=== PATIENT | male | born 1950 ===

== ENCOUNTER 2021-09-21 11:52 | Outpatient (REF) | payer MEDICARE, SELFPAY ==
[2021-09-21 12:04] LABS: MANUAL DIFF FLAG NO
[2021-09-21 12:29] LABS: Basophils Percent Auto 0.4 % (0-2); Eosinophils Absolute Auto 0.3 X10*3/uL (0.0-0.4); Eosinophils Percent Auto 3.2 % (0-4); Hematocrit 48.7 % (42.0-52.0); Imm Gran Abs Auto 0.05 X10*3/uL (0.00-0.03); Imm Gran Pct Auto 0.6 % (0.0-0.4); Lymphocytes Absolute Auto 2.5 X10*3/uL (1.2-4.9); Lymphocytes Percent Auto 30.1 % (20-40); Mean Corpuscular HGB Conc 32.9 g/dl (31.0-36.0); Mean Corpuscular Hemoglobin 28.6 pg (27.0-33.0); Mean Corpuscular Volume 87.1 fL (80.0-98.0); Mean Platelet Volume 8.6 fL (9.4-12.4); Monocytes Absolute Auto 0.9 X10*3/uL (0.1-1.2); Monocytes Percent Auto 10.6 % (2-11); Neutrophils Absolute Auto 4.7 x10*3/uL (2.0-8.3); Neutrophils Percent Auto 55.1 % (45-73); Platelet Count 310 X10*3/uL (160-400); Red Blood Count 5.59 X10*6/uL (4.60-5.80); Red Cell Distribution Width 14.9 % (11.0-16.0); White Blood Count 8.4 X10*3/uL (4.8-10.8)
[2021-09-21 12:40] LABS: Alanine Aminotransferase 26 U/L (0-40); Albumin Level 3.8 g/dL (3.5-5.0); Alkaline Phosphatase 56 U/L (39-117); Anion Gap 12 (12-20); Aspartate Amino Transferase 23 U/L (5-37); Bilirubin Total 0.3 mg/dL (0.0-1.0); Blood Urea Nitrogen 25 mg/dL (9-16); C Reactive Protein 0.69 mg/dL (< or = 0.50); Calcium 8.8 mg/dL (8.4-10.2); Carbon Dioxide 25 mmol/L (22-29); Chloride 110 mmol/L (96-108); Estimated Glomerular Filt Rate 44; Glucose Random 97 mg/dL (60-115); Potassium 4.8 mmol/L (3.3-5.1); Sodium 142 mmol/L (135-145); Total Protein 7.7 g/dL (6.5-8.0)
[2021-09-21 13:15] LABS: Erythrocyte Sedimentation Rate 27 MM/HR (0-15)
== END 2021-09-21 11:53 | disposition home or self-care (01) ==
LOC: HO.LAB 11:52
PROVIDERS: Visit Provider Internal Medicine Rheumatology
DX: M05.9 Rheumatoid arthritis with rheumatoid factor, unspecified (principal); N18.30 Chronic kidney disease, stage 3 unspecified; Z79.899 Other long term (current) drug therapy
CPT/HCPCS: 36415; 80053; 85025; 85652; 86140; 99212

== ENCOUNTER 2021-12-21 11:46 | Outpatient (REF) | payer MEDICARE, SELFPAY ==
[2021-12-21 14:18] LABS: MANUAL DIFF FLAG NO
[2021-12-21 14:33] LABS: Basophils Percent Auto 0.5 % (0-2); Eosinophils Absolute Auto 0.2 X10*3/uL (0.0-0.4); Eosinophils Percent Auto 2.5 % (0-4); Hematocrit 47.7 % (42.0-52.0); Hemoglobin 15.8 g/dl (14.0-18.0); Imm Gran Abs Auto 0.03 X10*3/uL (0.00-0.03); Imm Gran Pct Auto 0.4 % (0.0-0.4); Lymphocytes Absolute Auto 1.3 X10*3/uL (1.2-4.9); Lymphocytes Percent Auto 15.3 % (20-40); Mean Corpuscular HGB Conc 33.1 g/dl (31.0-36.0); Mean Corpuscular Hemoglobin 29.3 pg (27.0-33.0); Mean Corpuscular Volume 88.3 fL (80.0-98.0); Mean Platelet Volume 9.2 fL (9.4-12.4); Monocytes Absolute Auto 1.1 X10*3/uL (0.1-1.2); Neutrophils Absolute Auto 5.6 x10*3/uL (2.0-8.3); Neutrophils Percent Auto 68.3 % (45-73); Platelet Count 288 X10*3/uL (160-400); Red Cell Distribution Width 14.5 % (11.0-16.0); White Blood Count 8.2 X10*3/uL (4.8-10.8)
[2021-12-21 14:49] LABS: Alanine Aminotransferase 35 U/L (0-40); Aspartate Amino Transferase 28 U/L (5-37); C Reactive Protein 0.61 mg/dL (< or = 0.50); Estimated Glomerular Filt Rate 52
[2021-12-21 16:00] LABS: Erythrocyte Sedimentation Rate 18 MM/HR (0-15)
== END 2021-12-21 11:47 | disposition home or self-care (01) ==
LOC: HO.10HDL 11:46
PROVIDERS: Visit Provider Internal Medicine Rheumatology
DX: M05.9 Rheumatoid arthritis with rheumatoid factor, unspecified (principal); Z79.899 Other long term (current) drug therapy
CPT/HCPCS: 36415; 82565; 84450; 84460; 85025; 85652; 86140; 99212

== ENCOUNTER 2022-04-26 09:36 | Outpatient (REF) | payer MEDICARE, SELFPAY ==
[2022-04-26 10:30] LABS: MANUAL DIFF FLAG NO
[2022-04-26 10:45] LABS: Basophils Percent Auto 0.5 % (0-2); Eosinophils Absolute Auto 0.1 X10*3/uL (0.0-0.4); Eosinophils Percent Auto 1.8 % (0-4); Hematocrit 52.1 % (42.0-52.0); Hemoglobin 16.9 g/dl (14.0-18.0); Imm Gran Abs Auto 0.03 X10*3/uL (0.00-0.03); Imm Gran Pct Auto 0.4 % (0.0-0.4); Lymphocytes Absolute Auto 1.8 X10*3/uL (1.2-4.9); Lymphocytes Percent Auto 23.2 % (20-40); Mean Corpuscular HGB Conc 32.4 g/dl (31.0-36.0); Mean Corpuscular Hemoglobin 28.6 pg (27.0-33.0); Mean Corpuscular Volume 88.2 fL (80.0-98.0); Mean Platelet Volume 8.7 fL (9.4-12.4); Monocytes Percent Auto 12.5 % (2-11); Neutrophils Absolute Auto 4.7 x10*3/uL (2.0-8.3); Neutrophils Percent Auto 61.6 % (45-73); Platelet Count 299 X10*3/uL (160-400); Red Blood Count 5.91 X10*6/uL (4.60-5.80); Red Cell Distribution Width 13.4 % (11.0-16.0); White Blood Count 7.7 X10*3/uL (4.8-10.8)
[2022-04-26 11:53] LABS: Erythrocyte Sedimentation Rate 20 MM/HR (0-15)
[2022-04-26 12:06] LABS: Alanine Aminotransferase 40 U/L (0-40); Aspartate Amino Transferase 29 U/L (5-37); C Reactive Protein 0.84 mg/dL (< or = 0.50); Estimated Glomerular Filt Rate 52
== END 2022-04-26 09:37 | disposition home or self-care (01) ==
LOC: HO.10HDL 09:36
PROVIDERS: Visit Provider Internal Medicine Rheumatology
DX: M05.9 Rheumatoid arthritis with rheumatoid factor, unspecified (principal); Z79.899 Other long term (current) drug therapy
CPT/HCPCS: 36415; 82565; 84450; 84460; 85025; 85652; 86140

== ENCOUNTER → 2022-08-01 10:54 | Outpatient (BNVA) | payer MEDICARE, SELFPAY | PROVIDERS: PCP Internal Medicine; Visit Provider Internal Medicine Rheumatology | DX: M05.9 Rheumatoid arthritis with rheumatoid factor, unspecified (principal); I12.9 Hypertensive chronic kidney disease with stage 1 through stage 4 chronic kidney disease, or unspecified chronic kidney disease; N18.30 Chronic kidney disease, stage 3 unspecified; I69.320 Aphasia following cerebral infarction; Z79.631 Long term (current) use of antimetabolite agent; Z79.899 Other long term (current) drug therapy | CPT/HCPCS: 99212 ==

== ENCOUNTER 2022-08-01 12:06 | Outpatient (REF) | payer MEDICARE, SELFPAY ==
[2022-08-01 13:41] LABS: MANUAL DIFF FLAG NO
[2022-08-01 13:49] LABS: Basophils Percent Auto 0.4 % (0-2); Eosinophils Absolute Auto 0.2 X10*3/uL (0.0-0.4); Eosinophils Percent Auto 1.9 % (0-4); Hematocrit 50.4 % (42.0-52.0); Hemoglobin 16.2 g/dl (14.0-18.0); Imm Gran Abs Auto 0.04 X10*3/uL (0.00-0.03); Imm Gran Pct Auto 0.5 % (0.0-0.4); Lymphocytes Absolute Auto 1.6 X10*3/uL (1.2-4.9); Lymphocytes Percent Auto 19.8 % (20-40); Mean Corpuscular HGB Conc 32.1 g/dl (31.0-36.0); Mean Corpuscular Hemoglobin 28.2 pg (27.0-33.0); Mean Corpuscular Volume 87.8 fL (80.0-98.0); Mean Platelet Volume 8.6 fL (9.4-12.4); Monocytes Percent Auto 12.3 % (2-11); Neutrophils Absolute Auto 5.4 x10*3/uL (2.0-8.3); Neutrophils Percent Auto 65.1 % (45-73); Platelet Count 282 X10*3/uL (160-400); Red Blood Count 5.74 X10*6/uL (4.60-5.80); Red Cell Distribution Width 14.6 % (11.0-16.0); White Blood Count 8.3 X10*3/uL (4.8-10.8)
[2022-08-01 14:29] LABS: Erythrocyte Sedimentation Rate 14 MM/HR (0-15)
[2022-08-01 14:59] LABS: C Reactive Protein 0.74 mg/dL (< or = 0.50)
== END 2022-08-01 12:07 | disposition home or self-care (01) ==
LOC: HO.10HDL 12:06
PROVIDERS: Visit Provider Internal Medicine Rheumatology
DX: M05.9 Rheumatoid arthritis with rheumatoid factor, unspecified (principal); N18.30 Chronic kidney disease, stage 3 unspecified; Z79.899 Other long term (current) drug therapy
CPT/HCPCS: 36415; 85025; 85652; 86140

== ENCOUNTER 2022-11-27 07:57 | Outpatient (REF) | payer MEDICARE, SELFPAY ==
[2022-11-27 08:23] LABS: MANUAL DIFF FLAG NO
[2022-11-27 08:47] LABS: Basophils Percent Auto 0.6 % (0-2); Eosinophils Absolute Auto 0.2 X10*3/uL (0.0-0.4); Eosinophils Percent Auto 3.2 % (0-4); Hematocrit 50.7 % (42.0-52.0); Hemoglobin 16.6 g/dl (14.0-18.0); Imm Gran Abs Auto 0.03 X10*3/uL (0.00-0.03); Imm Gran Pct Auto 0.4 % (0.0-0.4); Lymphocytes Absolute Auto 1.4 X10*3/uL (1.2-4.9); Lymphocytes Percent Auto 19.5 % (20-40); Mean Corpuscular HGB Conc 32.7 g/dl (31.0-36.0); Mean Corpuscular Volume 88.5 fL (80.0-98.0); Mean Platelet Volume 8.5 fL (9.4-12.4); Monocytes Absolute Auto 0.6 X10*3/uL (0.1-1.2); Monocytes Percent Auto 8.4 % (2-11); Neutrophils Absolute Auto 4.7 x10*3/uL (2.0-8.3); Neutrophils Percent Auto 67.9 % (45-73); Platelet Count 262 X10*3/uL (160-400); Red Blood Count 5.73 X10*6/uL (4.60-5.80); Red Cell Distribution Width 13.8 % (11.0-16.0); White Blood Count 6.9 X10*3/uL (4.8-10.8)
[2022-11-27 09:14] LABS: Alanine Aminotransferase 54 U/L (0-40); Aspartate Amino Transferase 40 U/L (5-37); C Reactive Protein 0.61 mg/dL (< or = 0.50); Estimated Glomerular Filt Rate 52
[2022-11-27 09:22] LABS: Erythrocyte Sedimentation Rate 18 MM/HR (0-15)
== END 2022-11-27 07:58 | disposition home or self-care (01) ==
LOC: HO.LAB 07:57
PROVIDERS: PCP Internal Medicine; Visit Provider Internal Medicine Rheumatology
DX: M05.9 Rheumatoid arthritis with rheumatoid factor, unspecified (principal); Z79.899 Other long term (current) drug therapy
CPT/HCPCS: 36415; 82565; 84450; 84460; 85025; 85652; 86140

== ENCOUNTER 2022-11-29 09:36 | Outpatient (AMB) | payer MEDICARE, SELFPAY ==
--- NOTE | 2022-11-29 09:57 | MHC.OFFVIS ---
Intake Vital Signs 11/29/22 09:58 Height 6 ft Weight 206 lb 9.17 oz BMI 28.0 BP 128/60 Blood Pressure Location Lt brachial Position Sitting Pulse 69 Temp 97.5 F Temp Source Skin Pulse Oximetry (%) 89 L Oxygen Delivery Method Room Air Intake Visit Reasons: RA Intake Note: Here for RA follow up. c/o whole on left foot, healed Home Sales Service Professional Required: No Accompanied by: Self / Same As Patient Allergies No Known Allergies Allergy (Verified 11/29/22 09:57) HPI HPI Comments History of Present Illness Details Patient returns for evaluation of his rheumatoid arthritis. He remains on 15 mg weekly methotrexate, folic acid 1 mg daily, Xeljanz 5 mg daily, 1 Percocet nightly from his PCP. , and occasional ibuprofen 800 mg. In general he is pleased with the level of pain he has in the joints. He has been able to continue to go deep sea fishing with friends. He has been seeing a script supervisor about the callus and scarring at his left heel. This had developed into an infection years ago. Recently he says it was not infected but it was uncomfortable. He noted that there was some drainage of dark material consistent with an old hematoma. He is followed in Podiatry and apparently they have been debriding the area. It does not seem to limit him much in terms of his walking. Per his choice he has found an apartment in [place] so he does not have to live in [place] with his daughter. [facility] Medical History Aphasia as late effect of cerebrovascular accident CKD (chronic kidney disease) stage 3, GFR 30-59 ml/min GERD (gastroesophageal reflux disease) Hypertension Long-term use of immunosuppressant medication Seropositive rheumatoid arthritis Social History Household Members: Family Housing: House Are you a primary tree care foreman to a significant other at home: No Do you presently have visiting nurse or other home services: No Alcohol intake: never Patient Tobacco Use Status: Former Tobacco user Years Smoked: Quit 14 years ago e-Cigarette/Vaping Use: Never Used service: No Current occupational status: employed 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 Card Details: Negative chest pain, edema and syncope Resp Details: Negative for SOB, cough and wheezing GI Details: Negative indigestion/heartburn, nausea, abdominal pain, bowel changes, diarrhea, constipation and bloody stool. Skin/Breast Details: A callus on the left heel has been debrided but still is not smooth. Negative for itching, rash, hives, Raynaud's symptoms, sun sensitivity, and skin cancer Darius/Lymph Details: Negative for excessive bruising or bleeding. Physical Exam Vital Signs: Last Vital Signs Temp 97.5 F 11/29/22 09:58 Pulse 69 11/29/22 09:58 BP 128/60 11/29/22 09:58 Pulse Ox 89 L 11/29/22 09:58 Oxygen Delivery Method Room Air 11/29/22 09:58 BMI result Body Mass Index 28.0 APPEARANCE: Patient in no acute distress EYES no redness, pupils equal and reactive to light, eyelids normal EXTREMITIES: No edema, no calf tenderness, normal peripheral pulses. SKIN: At the left heel there is some dry skin that is been debrided. There is no surrounding redness or tenderness. This looks like a debrided callus. No drainage evident today. JOINT EXAM:.?? Cervical Spine:.? Full range of motion with slight discomfort.? No tenderness. Thoracic Spine:.? No scoliosis.? No tenderness on palpation. Lumbar Spine:.? Alignment normal.? Full range of motion without pain, no tenderness. Chest Wall:.? No tenderness, swelling, increased warmth or erythema. Hands:.? Right:? Mild to moderate swelling in the 1st 4 MCP joints with slight flexion deformity.? The 3rd MCP has slight tenderness and there is some ulnar deviation.? There is some thickening and minimal tenderness at the 3rd and 5th PIP.? He has multiple nodules over the MCP and PIP regions.? None of these are tender.? The skin is intact.? No sensory loss or thenar atrophy.? Left:? Mild swelling of the 1st 3 MCP joints but no tenderness.? There are a few nodules in this hand as well but none are tender.? No no thenar atrophy or sensory loss.? Wrists:.? pain-free range of motion to 45 degrees flexion or extension.? There nodules on the ulnar aspect of the volar side of the wrist bilaterally.? These are only slightly tender but not red or warm.? There is some slight thickening at the wrists but minimal tenderness and no increased warmth or erythema. Elbows:.? Right:? Normal pain-free range of motion with a large nodule over the ulnar region.? It is not tender or fluctuant.? There is no tenderness over the joint space.? Left: Pain-free range of motion with a few nodules within the olecranon bursa.? None of those are tender and there is no fluctuance or redness in the bursa.? No tenderness over the joint space. Shoulders:.? Right:? Slight discomfort with extremes of normal abduction or external rotation.? Minimal anterior tenderness without swelling or abductor weakness.? No adenopathy.? Left:? Full range of motion with no discomfort.? There is some minimal anterior tenderness but no adenopathy, weakness, swelling, increased warmth or erythema. Hips:.? Full range of motion without pain. Hip bursa:.? No tenderness. Knees:.?? Normal pain-free range of motion with mild patellofemoral crepitus.? No effusion, tenderness, swelling, increased warmth or erythema.? Ankles:.? Normal pain-free range of motion without tenderness, swelling, increased warmth or erythema. Feet:.? Left: Skin exam as noted above.in. ? The joints are not indurated, red, warm or tender.? No fluctuance or bruising.? There is some mild tenderness with bony enlargement at the 1st MTP joint.? Right: Mild 1st MTP bony enlargement without tenderness.? The 5th toe slides underneath the 4th toe.? Between the toes there is a slight area of skin redness and a corn is present but slightly tender but there are no breaks in the skin.? Elsewhere no tenderness, swelling, increased warmth or erythema. Results Reviewed Results Reviewed: Laboratory Tests 11/27/22 11/27/22 11/27/22 08:21 08:21 08:21 WBC 6.9 Hgb 16.6 ESR 18 H Creatinine 1.34 AST 40 H ALT 54 H C-Reactive Protein 0.61 H Assessment & Plan Assessment & Plan (1) Long-term use of immunosuppressant medication: Code(s): Z79.899 - Other director long term care (current) drug therapy (2) CKD (chronic kidney disease) stage 3, GFR 30-59 ml/min: Code(s): N18.30 - Chronic kidney disease, stage 3 unspecified (3) Elevated transaminase measurement: Code(s): R74.01 - Elevation of levels of liver transaminase levels (4) Foot callus: Comment: Left, source of infection in 2019 Code(s): L84 - Corns and callosities (5) Seropositive rheumatoid arthritis: Comment: ONSET 2007 Long-standing history of polyarticular joint pain and swelling with positive high titer rheumatoid factor and anti-CCP levels Methotrexate started 2015 Humira ([id number]) - Stopped due to infections Xeljanz 09/30 added - 2021 dosage reduced to just 5 mg daily due to some CKD. In Code(s): M05.9 - Rheumatoid arthritis with rheumatoid factor, unspecified Plan Patient has multiple deformities and multiple nodules from the RA but they are not accompanied by any significant tenderness. He seems to say he can function pretty well with his hands in spite of the deformities and limitation of motion. The medications seem to be tolerated okay although he has elevated transaminase now. He denies any current alcohol use history. We will cut his methotrexate dose back to 12.5 mg weekly. The renal function is limited but stable so he is on a reduced dose of both the methotrexate and the Xeljanz. We will check lab work again in January and March. A follow-up in March is recommended. He was warned that the callus could become infected again and he should inspected trung daily for any signs of infection. If that is present he will need to seek prompt medical care. Review his history, physical exam, and discussing issues of his LFTs and the callus took 34 minutes. Orders: Orders Alanine Aminotransferase Today M05.9 - Rheumatoid arthritis with rheumatoid factor, unspecified, Z79.899 - Other director long term care (current) drug therapy Aspartate Amino Transferase Today M05.9 - Rheumatoid arthritis with rheumatoid factor, unspecified, Z79.899 - Other half-way (current) drug therapy Creatinine Today M05.9 - Rheumatoid arthritis with rheumatoid factor, unspecified, Z79.899 - Other director long term care (current) drug therapy C Reactive Protein Today M05.9 - Rheumatoid arthritis with rheumatoid factor, unspecified Complete Blood Count Auto Diff Today M05.9 - Rheumatoid arthritis with rheumatoid factor, unspecified, Z79.899 - Other director long term care (current) drug therapy Erythrocyte Sedimentation Rate Today M05.9 - Rheumatoid arthritis with rheumatoid factor, unspecified Medications: Changed From methotrexate sodium 15 mg (6 x 2.5 mg) PO QWEEK 24 tabs 0RF M05.9 - Rheumatoid arthritis with rheumatoid factor, unspecified To methotrexate sodium 12.5 mg (5 x 2.5 mg) PO QWEEK 20 tabs 1RF M05.9 - Rheumatoid arthritis with rheumatoid factor, unspecified Coding Level of Care Code Est Pt Level 4 (35049) Diagnoses Long-term use of immunosuppressant medication Z79.899 CKD (chronic kidney disease) stage 3, GFR 30-59 ml/min N18.30 Elevated transaminase measurement R74.01 Foot callus L84 Seropositive rheumatoid arthritis M05.9
[2022-11-29 09:58] VITALS: BP 128/60; PULSE 69; TEMP 36.4; O2SAT 89; BMI 28.0
== END 2022-11-29 10:49 | disposition home or self-care (01) ==
PROVIDERS: PCP Internal Medicine; Visit Provider Internal Medicine Rheumatology
DX: M05.79 Rheumatoid arthritis with rheumatoid factor of multiple sites without organ or systems involvement (principal); L84 Corns and callosities; R74.01 Elevation of levels of liver transaminase levels; Z79.899 Other long term (current) drug therapy; N18.30 Chronic kidney disease, stage 3 unspecified
CPT/HCPCS: 99214

== ENCOUNTER → 2022-11-29 09:36 | Outpatient (BNVA) | payer MEDICARE, SELFPAY | PROVIDERS: PCP Internal Medicine; Visit Provider Internal Medicine Rheumatology | DX: M05.9 Rheumatoid arthritis with rheumatoid factor, unspecified (principal); N18.30 Chronic kidney disease, stage 3 unspecified; R74.01 Elevation of levels of liver transaminase levels; L84 Corns and callosities; Z79.899 Other long term (current) drug therapy | CPT/HCPCS: 99212 ==

== ENCOUNTER 2023-01-29 13:11 | Outpatient (REF) | payer MEDICARE, SELFPAY ==
[2023-01-29 13:36] LABS: MANUAL DIFF FLAG NO
[2023-01-29 13:52] LABS: Basophils Percent Auto 0.4 % (0-2); Eosinophils Absolute Auto 0.2 X10*3/uL (0.0-0.4); Eosinophils Percent Auto 2.9 % (0-4); Hematocrit 49.7 % (42.0-52.0); Hemoglobin 16.1 g/dl (14.0-18.0); Imm Gran Abs Auto 0.02 X10*3/uL (0.00-0.03); Imm Gran Pct Auto 0.3 % (0.0-0.4); Lymphocytes Percent Auto 26.3 % (20-40); Mean Corpuscular HGB Conc 32.4 g/dl (31.0-36.0); Mean Corpuscular Hemoglobin 28.9 pg (27.0-33.0); Mean Corpuscular Volume 89.2 fL (80.0-98.0); Mean Platelet Volume 8.7 fL (9.4-12.4); Monocytes Absolute Auto 0.9 X10*3/uL (0.1-1.2); Neutrophils Absolute Auto 4.4 x10*3/uL (2.0-8.3); Neutrophils Percent Auto 58.1 % (45-73); Platelet Count 243 X10*3/uL (160-400); Red Blood Count 5.57 X10*6/uL (4.60-5.80); Red Cell Distribution Width 14.3 % (11.0-16.0); White Blood Count 7.6 X10*3/uL (4.8-10.8)
[2023-01-29 14:55] LABS: Erythrocyte Sedimentation Rate 14 MM/HR (0-15)
[2023-01-29 15:16] LABS: Alanine Aminotransferase 39 U/L (0-40); Aspartate Amino Transferase 31 U/L (5-37); C Reactive Protein 1.07 mg/dL (< or = 0.50); Estimated Glomerular Filt Rate 52
== END 2023-01-29 13:12 | disposition home or self-care (01) ==
LOC: HO.LAB 13:11
PROVIDERS: PCP Internal Medicine; Visit Provider Internal Medicine Rheumatology
DX: M05.9 Rheumatoid arthritis with rheumatoid factor, unspecified (principal); Z79.899 Other long term (current) drug therapy
CPT/HCPCS: 36415; 82565; 84450; 84460; 85025; 85652; 86140

== ENCOUNTER 2023-03-23 10:02 | Outpatient (REF) | payer MEDICARE, SELFPAY ==
[2023-03-23 10:30] LABS: MANUAL DIFF FLAG NO
[2023-03-23 11:11] LABS: Basophils Percent Auto 0.5 % (0-2); Eosinophils Absolute Auto 0.1 X10*3/uL (0.0-0.4); Eosinophils Percent Auto 1.7 % (0-4); Hematocrit 48.8 % (42.0-52.0); Hemoglobin 15.9 g/dl (14.0-18.0); Imm Gran Abs Auto 0.02 X10*3/uL (0.00-0.03); Imm Gran Pct Auto 0.2 % (0.0-0.4); Lymphocytes Absolute Auto 1.2 X10*3/uL (1.2-4.9); Lymphocytes Percent Auto 14.6 % (20-40); Mean Corpuscular HGB Conc 32.6 g/dl (31.0-36.0); Mean Corpuscular Hemoglobin 29.3 pg (27.0-33.0); Mean Corpuscular Volume 89.9 fL (80.0-98.0); Mean Platelet Volume 8.7 fL (9.4-12.4); Monocytes Absolute Auto 1.1 X10*3/uL (0.1-1.2); Neutrophils Absolute Auto 5.8 x10*3/uL (2.0-8.3); Platelet Count 242 X10*3/uL (160-400); Red Blood Count 5.43 X10*6/uL (4.60-5.80); Red Cell Distribution Width 14.7 % (11.0-16.0); White Blood Count 8.3 X10*3/uL (4.8-10.8)
[2023-03-23 11:37] LABS: Alanine Aminotransferase 60 U/L (0-40); Aspartate Amino Transferase 54 U/L (5-37); C Reactive Protein 3.83 mg/dL (< or = 0.50); Estimated Glomerular Filt Rate 59
[2023-03-23 12:28] LABS: Erythrocyte Sedimentation Rate 28 MM/HR (0-15)
== END 2023-03-23 10:03 | disposition home or self-care (01) ==
LOC: HO.LAB 10:02
PROVIDERS: Visit Provider Internal Medicine Rheumatology
DX: M05.9 Rheumatoid arthritis with rheumatoid factor, unspecified (principal); Z79.899 Other long term (current) drug therapy
CPT/HCPCS: 36415; 82565; 84450; 84460; 85025; 85652; 86140

== ENCOUNTER 2023-04-02 09:54 | Outpatient (AMB) | payer MEDICARE, SELFPAY ==
[2023-04-02 10:10] VITALS: BP 140/74; PULSE 66; O2SAT 86; BMI 29.1
--- NOTE | 2023-04-02 10:10 | MHC.OFFVIS ---
Intake Vital Signs 04/02/23 10:10 Height 6 ft Weight 214 lb 15.211 oz BMI 29.1 BP 140/74 H Blood Pressure Location Lt brachial Position Sitting Pulse 66 Pulse Source Pulse Oximeter Pulse Oximetry (%) 86 L Oxygen Delivery Method Room Air Intake Visit Reasons: PMR Intake Note: Patient last seen 11/29/22, presents today for follow up and test results. Edge Stitcher Required: No Accompanied by: Self / Same As Patient Allergies No Known Allergies Allergy (Verified 04/02/23 10:14) HPI HPI Comments History of Present Illness Details The patient returns for evaluation of his rheumatoid arthritis. He remains on methotrexate 12.5 mg once a week, folic acid 1 mg daily, Xeljanz 5 mg daily, and occasionally he takes ibuprofen. In general he feels the joints are under fairly good control. He notes multiple areas of nodules. He had a difficult to heal eschar on the left heel. This he says is healing quite well this point. He and apparently the soccer commentator believe he might have had a rheumatoid nodule in that area. It was a source of a generalized cellulitic infection previously. He says there is no pain in that currently and he has not had any drainage for week from it. He is awaiting a shipment of the Xeljanz, he gets that through the [facility] and there has been some hold up on delivery so we will need to look into that. He lives on his own currently but he says he has some elder care services that are supposed to meet with them soon to help him out. He decided to move out of the home of his daughter. 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 He remains occasionally doing some recreational deep sea fishing with his friend. He was seen in urgent care with the complaint of productive cough. They apparently thought he had a sinusitis and put him on amoxicillin/clavulanic acid and prednisone. He says symptoms are improving. He has another 4 days of antibiotics. [facility] Medical History Aphasia as late effect of cerebrovascular accident CKD (chronic kidney disease) stage 3, GFR 30-59 ml/min GERD (gastroesophageal reflux disease) Hypertension Long-term use of immunosuppressant medication Seropositive rheumatoid arthritis Social History Household Members: Family Housing: House Are you a primary child care attendant to a significant other at home: No Do you presently have visiting nurse or other home services: No Alcohol intake: never Patient Tobacco Use Status: Former Tobacco user Years Smoked: Quit 14 years ago e-Cigarette/Vaping Use: Never Used service: No Current occupational status: employed 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 Card Details: Negative chest pain, edema and syncope Resp Details: Negative for SOB, cough and wheezing GI Details: Negative indigestion/heartburn, nausea, abdominal pain, bowel changes, diarrhea, constipation and bloody stool. Darius/Lymph Details: Negative for excessive bruising or bleeding. Physical Exam Vital Signs: Last Vital Signs Pulse 66 04/02/23 10:10 BP 140/74 H 04/02/23 10:10 Pulse Ox 86 L 04/02/23 10:10 Oxygen Delivery Method Room Air 04/02/23 10:10 BMI result Body Mass Index 29.1 APPEARANCE: Patient in no acute distress EYES no redness, pupils equal and reactive to light, eyelids normal EXTREMITIES: No edema, no calf tenderness, normal peripheral pulses. SKIN: At the left heel there is some dry skin with a healing eschar about 4 mm. There is no surrounding redness or tenderness. This looks like a debrided callus. No drainage evident today. JOINT EXAM:.?? Cervical Spine:.? Full range of motion with slight discomfort.? No tenderness. Thoracic Spine:.? No scoliosis.? No tenderness on palpation. Lumbar Spine:.? Alignment normal.? Full range of motion without pain, no tenderness. Chest Wall:.? No tenderness, swelling, increased warmth or erythema. Hands:.? Right:? Mild to moderate swelling in the 1st 4 MCP joints with slight flexion deformity.? The 3rd MCP has slight tenderness and there is some ulnar deviation.? There is some thickening and minimal tenderness at the 3rd and 5th PIP.? He has multiple nodules over the MCP and PIP regions.? None of these are tender.? The skin is intact.? No sensory loss or thenar atrophy.? Left:? Mild swelling of the 1st 3 MCP joints but no tenderness.? There are a few nodules in this hand as well but none are tender.? No no thenar atrophy or sensory loss.? Wrists:.? pain-free range of motion to 45 degrees flexion or extension.? There nodules on the ulnar aspect of the volar side of the wrists bilaterally.? These are only slightly tender but not red or warm.? There is some slight thickening at the wrists but minimal tenderness and no increased warmth or erythema. Elbows:.? Right:? Normal pain-free range of motion with a large nodule over the ulnar region.? It is not tender or fluctuant.? There is no tenderness over the joint space.? Left: Pain-free range of motion with a few nodules within the olecranon bursa.? None of those are tender and there is no fluctuance or redness in the bursa.? No tenderness over the joint space. Shoulders:.? Right:? Slight discomfort with extremes of normal abduction or external rotation.? Minimal anterior tenderness without swelling or abductor weakness.? No adenopathy.? Left:? Full range of motion with no discomfort.? There is some minimal anterior tenderness but no adenopathy, weakness, swelling, increased warmth or erythema. Hips:.? Full range of motion without pain. Hip bursa:.? No tenderness. Knees:.?? Normal pain-free range of motion with mild patellofemoral crepitus.? No effusion, tenderness, swelling, increased warmth or erythema.? Ankles:.? Normal pain-free range of motion without tenderness, swelling, increased warmth or erythema. Feet:.? Left: Skin exam as noted above. The joints are not indurated, red, warm or tender.? No fluctuance or bruising.? There is some mild tenderness with bony enlargement at the 1st MTP joint.? Right: Mild 1st MTP bony enlargement without tenderness.? The 5th toe slides underneath the 4th toe.? Between the toes there is a slight area of skin redness and a corn is present but slightly tender but there are no breaks in the skin.? Elsewhere no tenderness, swelling, increased warmth or erythema. ? Results Reviewed Results Reviewed: Laboratory Tests 03/23/23 10:28 WBC 8.3 Hgb 15.9 ESR 28 H C-Reactive Protein 3.83 H Laboratory Tests 01/29/23 03/23/23 13:34 10:28 AST 31 54 H ALT 39 60 H Assessment & Plan Assessment & Plan (1) Long-term use of immunosuppressant medication: Code(s): Z79.899 - Other senior living (current) drug therapy (2) Elevated transaminase measurement: Code(s): R74.01 - Elevation of levels of liver transaminase levels (3) Foot callus: Comment: Left, source of infection in 2019 Code(s): L84 - Corns and callosities (4) CKD (chronic kidney disease) stage 3, GFR 30-59 ml/min: Code(s): N18.30 - Chronic kidney disease, stage 3 unspecified (5) Seropositive rheumatoid arthritis: Comment: ONSET 2007 Long-standing history of polyarticular joint pain and swelling with positive high titer rheumatoid factor and anti-CCP levels Methotrexate started 2015 Humira ([id number]) - Stopped due to infections Xeljanz 09/30 - 2021 dosage reduced to just 5 mg daily due to some CKD. In Code(s): M05.9 - Rheumatoid arthritis with rheumatoid factor, unspecified Plan Longstanding seropositive rheumatoid arthritis with subsequent deformities and multiple nodules. He does seem to be functioning fairly well and he says he is reasonable comfortable with current regimen. He attributes mostly this to the Xeljanz. He is on a low dose because of the prior history of vascular disease as well as his CKD. The CKD number seems stable. He now has again slight elevation of transaminases. He denies any alcohol use. He is also on some antibiotics for either bronchitis or some sinusitis. Those symptoms seem to be improving. It is possible the transaminases are elevated because of that illness. We will have him recheck his chemistries next week and consider further reduction in the methotrexate dose if the LFTs remain elevated. We will fax in the form again for him to get the Xeljanz from the pharmaceutical company. The left heel wound seems to be almost all healed up. I told him to keep an eye on this and report to his primary doctor any signs of localized infection. We will aim follow-up for about 3 months. Orders: Orders Comprehensive Met. Panel Today Z79.899 - Other senior living (current) drug therapy Coding Level of Care Code Est Pt Level 4 (42103) Diagnoses Long-term use of immunosuppressant medication Z79.899 Elevated transaminase measurement R74.01 Foot callus L84 CKD (chronic kidney disease) stage 3, GFR 30-59 ml/min N18.30 Seropositive rheumatoid arthritis M05.9
== END 2023-04-02 10:40 | disposition home or self-care (01) ==
PROVIDERS: PCP Internal Medicine; Visit Provider Internal Medicine Rheumatology
DX: M05.79 Rheumatoid arthritis with rheumatoid factor of multiple sites without organ or systems involvement (principal); Z79.899 Other long term (current) drug therapy; R74.01 Elevation of levels of liver transaminase levels; L84 Corns and callosities; N18.30 Chronic kidney disease, stage 3 unspecified
CPT/HCPCS: 99214

== ENCOUNTER → 2023-04-02 09:54 | Outpatient (BNVA) | payer MEDICARE, SELFPAY | PROVIDERS: PCP Internal Medicine; Visit Provider Internal Medicine Rheumatology | DX: M05.9 Rheumatoid arthritis with rheumatoid factor, unspecified (principal); N18.30 Chronic kidney disease, stage 3 unspecified; L84 Corns and callosities; R74.01 Elevation of levels of liver transaminase levels; Z79.899 Other long term (current) drug therapy | CPT/HCPCS: 99212 ==

== ENCOUNTER 2023-04-10 10:29 | Outpatient (REF) | payer MEDICARE, SELFPAY ==
[2023-04-10 15:08] LABS: Alanine Aminotransferase 56 U/L (0-40); Albumin Level 3.6 g/dL (3.5-5.0); Alkaline Phosphatase 45 U/L (39-117); Anion Gap 10 (12-20); Aspartate Amino Transferase 33 U/L (5-37); Bilirubin Total 0.3 mg/dL (0.0-1.0); Blood Urea Nitrogen 30 mg/dL (9-16); Calcium 9.2 mg/dL (8.4-10.2); Carbon Dioxide 28 mmol/L (22-29); Chloride 108 mmol/L (96-108); Estimated Glomerular Filt Rate 53; Glucose Random 86 mg/dL (60-115); Potassium 4.5 mmol/L (3.3-5.1); Sodium 141 mmol/L (135-145); Total Protein 7.6 g/dL (6.5-8.0)
== END 2023-04-10 10:30 | disposition home or self-care (01) ==
LOC: HO.10HDL 10:29
PROVIDERS: Visit Provider Internal Medicine Rheumatology
DX: Z79.899 Other long term (current) drug therapy (principal)
CPT/HCPCS: 36415; 80053

== ENCOUNTER 2023-07-12 10:03 | Outpatient (AMB) | payer MEDICARE, SELFPAY ==
[2023-07-12 10:10] VITALS: BP 138/70; PULSE 88; TEMP 36.4; O2SAT 98; BMI 29.2
--- NOTE | 2023-07-12 10:10 | A.OFFVIS_ITS ---
Intake Vital Signs 07/12/23 10:10 Height 6 ft Weight 215 lb 6.266 oz BMI 29.2 BP 138/70 Blood Pressure Location Rt brachial Position Sitting Pulse 88 Pulse Source Pulse Oximeter Temp 97.5 F Temp Source Skin Pulse Oximetry (%) 98 Oxygen Delivery Method Room Air Intake Visit Reasons: RA/CONFIRMED Intake Note: Patient last seen 04/02/[address] Benjamin, presents today for follow up and test results. Traveling Phlebotomist Required: No Accompanied by: Self / Same As Patient Allergies No Known Allergies Allergy (Verified 07/12/23 10:11) HPI HPI Comments History of Present Illness Details Mr. Tate 73yoM patient returns for follow-up of his rheumatoid arthritis. He remains on methotrexate 12.5 mg once a week, folic acid 1 mg daily, Xeljanz 5 mg daily, and occasionally he takes ibuprofen. In general he feels the joints are under fairly good control. He notes multiple areas of nodules and notes more are coming out primarily on his arms and hands. He had a difficult to heal eschar on the left heel but that is now resolved. 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 He remains occasionally doing some recreational deep sea fishing with his friend. [facility] Medical History (Updated 07/12/23 @ 12:50 by TETO Mora) Rheumatoid nodule of elbow Long-term use of immunosuppressant medication Hypertension GERD (gastroesophageal reflux disease) CKD (chronic kidney disease) stage 3, GFR 30-59 ml/min Aphasia as late effect of cerebrovascular accident Seropositive rheumatoid arthritis Social History Household Members: Family Housing: House Are you a primary director critical care to a significant other at home: No Do you presently have visiting nurse or other home services: No Alcohol intake: never Patient Tobacco Use Status: Former Tobacco user Years Smoked: Quit 14 years ago e-Cigarette/Vaping Use: Never Used service: No Current occupational status: employed 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 Physical Exam Vital Signs: Last Vital Signs Temp 97.5 F 07/12/23 10:10 Pulse 88 07/12/23 10:10 BP 138/70 07/12/23 10:10 Pulse Ox 98 07/12/23 10:10 Oxygen Delivery Method Room Air 07/12/23 10:10 BMI result Body Mass Index 29.2 Assessment & Plan Assessment & Plan (1) Long-term use of immunosuppressant medication: Code(s): Z79.899 - Other parts counterman (current) drug therapy (2) Elevated transaminase measurement: Code(s): R74.01 - Elevation of levels of liver transaminase levels (3) CKD (chronic kidney disease) stage 3, GFR 30-59 ml/min: Code(s): N18.30 - Chronic kidney disease, stage 3 unspecified Qualifiers: Chronic kidney disease stage 3 subtype: stage 3b (GFR 30-44) Qualified Code(s): N18.32 - Chronic kidney disease, stage 3b (4) Seropositive rheumatoid arthritis: Comment: ONSET 2007 Long-standing history of polyarticular joint pain and swelling with positive high titer rheumatoid factor and anti-CCP levels Methotrexate started 2015 Humira ([id number]) - Stopped due to infections Xeljanz 09/30 - 2021 dosage reduced to just 5 mg daily due to some CKD. In Code(s): M05.9 - Rheumatoid arthritis with rheumatoid factor, unspecified (5) Rheumatoid nodule of elbow: Code(s): M06.329 - Rheumatoid nodule, unspecified elbow Qualifiers: Laterality: unspecified laterality Qualified Code(s): M06.329 - Rheumatoid nodule, unspecified elbow Plan Mr. Tate has longstanding seropositive rheumatoid arthritis with subsequent deformities and multiple nodules. He does seem to be functioning fairly well and he says he is reasonable comfortable with current regimen. He attributes mostly this to the Xeljanz. He is on a low dose because of the prior history of vascular disease (CVA 2021) as well as his CKD. The CKD number seems stable. He continues with slight elevation of transaminases though the AST is normalized after the reduction of MTX. He denies any alcohol use. I discussed with patient possible stopping MTX which may be contributory to the RA nodules but he refuses. His disease is stable and he does not want to alter at this point. Additionally, we discuss his history of CVA and Xeljanz and he wants to continue. We will aim follow-up for about 4 months. Orders: Orders Erythrocyte Sedimentation Rate Today M05.9 - Rheumatoid arthritis with rheumatoid factor, unspecified, R74.01 - Elevation of levels of liver transaminase levels, Z79.899 - Other parts counterman (current) drug therapy Complete Blood Count Auto Diff Today M05.9 - Rheumatoid arthritis with rheumatoid factor, unspecified, R74.01 - Elevation of levels of liver transaminase levels, Z79.899 - Other parts counterman (current) drug therapy Comprehensive Met. Panel Today M05.9 - Rheumatoid arthritis with rheumatoid factor, unspecified, R74.01 - Elevation of levels of liver transaminase levels, Z79.899 - Other residential (current) drug therapy C Reactive Protein Today M05.9 - Rheumatoid arthritis with rheumatoid factor, unspecified, R74.01 - Elevation of levels of liver transaminase levels, Z79.899 - Other residential (current) drug therapy Coding Level of Care Code Est Pt Level 4 (81115) Diagnoses Long-term use of immunosuppressant medication Z79.899 Elevated transaminase measurement R74.01 Stage 3b chronic kidney disease N18.32 Chronic kidney disease stage 3 subtype: stage 3b (GFR 30-44) Seropositive rheumatoid arthritis M05.9 Rheumatoid nodule of elbow, unspecified laterality M06.329 Laterality: unspecified laterality
== END 2023-07-12 10:58 | disposition home or self-care (01) ==
PROVIDERS: PCP Internal Medicine; Visit Provider Nurse Practitioner Family
DX: M05.79 Rheumatoid arthritis with rheumatoid factor of multiple sites without organ or systems involvement (principal); Z79.899 Other long term (current) drug therapy; R74.01 Elevation of levels of liver transaminase levels; N18.32 Chronic kidney disease, stage 3b; M06.329 Rheumatoid nodule, unspecified elbow
CPT/HCPCS: 99214

== ENCOUNTER → 2023-07-12 10:03 | Outpatient (BNVA) | payer MEDICARE, SELFPAY | PROVIDERS: PCP Internal Medicine; Visit Provider Nurse Practitioner Family | DX: M05.9 Rheumatoid arthritis with rheumatoid factor, unspecified (principal); R74.01 Elevation of levels of liver transaminase levels; N18.32 Chronic kidney disease, stage 3b; M06.329 Rheumatoid nodule, unspecified elbow; Z79.899 Other long term (current) drug therapy | CPT/HCPCS: 99212 ==

== ENCOUNTER 2023-07-26 10:56 | Outpatient (REF) | payer MEDICARE, SELFPAY ==
[2023-07-26 13:02] LABS: MANUAL DIFF FLAG NO
[2023-07-26 13:06] LABS: Basophils Absolute Auto 0.1 X10*3/uL (0.0-0.2); Basophils Percent Auto 0.6 % (0-2); Eosinophils Absolute Auto 0.3 X10*3/uL (0.0-0.4); Eosinophils Percent Auto 2.8 % (0-4); Hematocrit 51.3 % (42.0-52.0); Hemoglobin 17.3 g/dl (14.0-18.0); Imm Gran Abs Auto 0.03 X10*3/uL (0.00-0.03); Imm Gran Pct Auto 0.3 % (0.0-0.4); Lymphocytes Absolute Auto 1.7 X10*3/uL (1.2-4.9); Lymphocytes Percent Auto 19.1 % (20-40); Mean Corpuscular HGB Conc 33.7 g/dl (31.0-36.0); Mean Corpuscular Hemoglobin 29.4 pg (27.0-33.0); Mean Corpuscular Volume 87.2 fL (80.0-98.0); Mean Platelet Volume 8.6 fL (9.4-12.4); Monocytes Absolute Auto 1.4 X10*3/uL (0.1-1.2); Monocytes Percent Auto 15.3 % (2-11); Neutrophils Absolute Auto 5.5 x10*3/uL (2.0-8.3); Neutrophils Percent Auto 61.9 % (45-73); Platelet Count 238 X10*3/uL (160-400); Red Blood Count 5.88 X10*6/uL (4.60-5.80); Red Cell Distribution Width 14.6 % (11.0-16.0); White Blood Count 8.9 X10*3/uL (4.8-10.8)
[2023-07-26 13:46] LABS: Alanine Aminotransferase 41 U/L (0-40); Albumin Level 3.4 g/dL (3.5-5.0); Alkaline Phosphatase 49 U/L (39-117); Anion Gap 10 (12-20); Aspartate Amino Transferase 30 U/L (5-37); Bilirubin Total 0.3 mg/dL (0.0-1.0); Blood Urea Nitrogen 25 mg/dL (9-16); Calcium 8.8 mg/dL (8.4-10.2); Carbon Dioxide 25 mmol/L (22-29); Chloride 111 mmol/L (96-108); Estimated Glomerular Filt Rate > 60; Glucose Random 83 mg/dL (60-115); Sodium 142 mmol/L (135-145); Total Protein 7.4 g/dL (6.5-8.0)
[2023-07-26 13:51] LABS: Erythrocyte Sedimentation Rate 11 MM/HR (0-15)
== END 2023-07-26 10:57 | disposition home or self-care (01) ==
LOC: HO.10HDL 10:56
PROVIDERS: Visit Provider Nurse Practitioner Family
DX: R74.01 Elevation of levels of liver transaminase levels (principal); M05.9 Rheumatoid arthritis with rheumatoid factor, unspecified; Z79.899 Other long term (current) drug therapy
CPT/HCPCS: 36415; 80053; 85025; 85652; 86140

== ENCOUNTER 2023-10-01 11:02 | Outpatient (AMB) | payer MEDICARE, SELFPAY ==
[2023-10-01 11:45] VITALS: BMI 29.3
--- NOTE | 2023-10-01 11:45 | A.OFFVIS_ITS ---
VS Expanded 10/01/23 11:45 10/10/23 08:40 Height 6 ft 6 ft Weight 215 lb 13.321 oz 216 lb BMI 29.3 29.3 Intake Visit Reasons: DM/CONFIRMED Allergies No Known Allergies Allergy (Verified 07/12/23 10:11) Nutrition Presentation Details: Patient presents for initial medical nutrition therapy for new onset type 2 diabetes. Patient was reserved for heard by primary care physician Matthew Mike From [facility] Monitoring Most Recent Diabetes Results: Creatinine 1.12 mg/dL (0.5-1.4) 07/26/23 Blood Urea Nitrogen 25 mg/dL (9-16) H 07/26/23 Sodium 142 mmol/L (135-145) 07/26/23 Potassium 4.0 mmol/L (3.3-5.1) 07/26/23 Chloride 111 mmol/L (96-108) H 07/26/23 Carbon Dioxide 25 mmol/L (22-29) 07/26/23 Calcium 8.8 mg/dL (8.4-10.2) 07/26/23 AST 30 U/L (5-37) 07/26/23 ALT 41 U/L (0-40) H 07/26/23 Total Protein 7.4 g/dL (6.5-8.0) 07/26/23 Albumin 3.4 g/dL (3.5-5.0) L 07/26/23 RFJ-Dnwacda-Mr.Jeor Equation Height: 6 ft Weight: 216 lb Resting Metabolic Rate: 1762.70 Calculated Activity Level: Sedentary Calories Needed to Maintain Weight: 2115.24 Diagnosis Nutrition problem #1: food nutri know defi As related to (etiology) #1: diagnosis As evidenced by (sign/symptom) #1: knowledge deficit of diet Monitoring/Goals Nutrition problem monitoring: level of knowledge/skill Outcome progress: verbalized understanding Learning/Education Readiness to learn: good [facility] Medical History (Updated 10/10/23 @ 08:35 by Jacklyn Dunn, RD, LDN) Rheumatoid nodule of elbow Long-term use of immunosuppressant medication Hypertension GERD (gastroesophageal reflux disease) CKD (chronic kidney disease) stage 3, GFR 30-59 ml/min Aphasia as late effect of cerebrovascular accident Seropositive rheumatoid arthritis Social History (Reviewed 07/12/23 @ 10:11 by RAINER Cao Household Members: Family Housing: House Are you a primary director of patient care to a significant other at home: No Do you presently have visiting nurse or other home services: No Alcohol intake: never Patient Tobacco Use Status: Former Tobacco user Years Smoked: Quit 14 years ago e-Cigarette/Vaping Use: Never Used service: No Current occupational status: employed 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 Assessment & Plan Assessment & Plan (1) New onset type 2 diabetes mellitus: Code(s): E11.9 - Type 2 diabetes mellitus without complications Category: Medical Plan: Wt: 98 Kg ( 09/2023 ) Est kcal needs as per MSJ: 2100 (40% carb, 30% protein/fat) Est fluid needs as per 25-30 ml/d: 2500 Est prot per day as per 1 g/kg bw: 98 G Recommend fiber intake : 8-10 g per day and gradually increase to 25-28 g per day for women and 35-38 g for men or as tolerated Recommend sodium intake per day : less than 2000 mg Educated patient on: ( R = reviewed V = verbalizes understanding N/R = needs review N/A = not applicable * Food sources of carbohydrate, adequate serving sizes and its role in various health conditions: R * Differences between complex carbohydrates a simple carbohydrates, role of fiber in diet: R V N/R * Lean protein sources of foods: R V NR * Differences between types of fats and role in diet (mono on saturated fat fatty acids, saturated fatty acids, trans fats): R V N/R * Food sources of sodium in salt and healthy modifications for heart health in kidney health: R V R/V * Vitamins and minerals: R V N/R * Healthy plate method concept: R * Physical activity: Benefits a precaution: R V N/R * Hypoglycemia protocol (rule of 15): R V N/R * Dietary prevention of Hyperglycemia: R * Relationship of food to blood glucose level: R Patient Instructions: Follow healthy plate method, reducing total carbs to 60 -75 g at meals Have water or milk with meals instead of sugary beverages Work on reducing on pastries Coding Level of Care Code Nutr Indiv Intake (73927) Diagnoses New onset type 2 diabetes mellitus E11.9 Time Spent (min) 30
[2023-10-10 08:40] VITALS: BMI 29.3
== END 2023-10-01 12:17 | disposition home or self-care (01) ==
PROVIDERS: PCP Internal Medicine; Visit Provider Dietitian, Registered
DX: E11.9 Type 2 diabetes mellitus without complications (principal)

== ENCOUNTER → 2023-10-01 11:02 | Outpatient (BNVA) | payer MEDICARE, SELFPAY | PROVIDERS: PCP Internal Medicine; Visit Provider Dietitian, Registered | DX: E11.9 Type 2 diabetes mellitus without complications (principal); Z71.3 Dietary counseling and surveillance | CPT/HCPCS: 97802 ==

== ENCOUNTER 2023-10-30 07:57 | Outpatient (AMB) | payer MEDICARE, MEDICAID, SELFPAY ==
--- NOTE | 2023-10-30 07:58 | A.OFFVIS_ITS ---
Vital Signs 10/30/23 08:05 Height 6 ft Weight 212 lb 15.465 oz BMI 28.9 BP 134/70 Blood Pressure Location Lt brachial Position Sitting Pulse 70 Pulse Oximetry (%) 90 L Oxygen Delivery Method Room Air Intake Visit Reasons: SeroPos RA with Nodules/cm Intake Note: Patient presents for SeroPos RA with Nodules. Allergies No Known Allergies Allergy (Verified 10/30/23 08:03) Medication List - Last Reconciled 10/30/23 by Danisha Lubin MD aspirin (Adult Low Dose Aspirin) 81 mg PO DAILY clopidogrel (Plavix) 75 mg PO DAILY fenofibrate micronized 134 mg PO DAILY folic acid 1 mg PO DAILY ibuprofen 800 mg PO DAILY PRN ketoconazole 2% topical lisinopril 5 mg PO DAILY methotrexate sodium 12.5 mg (5 x 2.5 mg) PO QWEEK omeprazole 20 mg PO DAILY oxycodone-acetaminophen 5-325 mg 1 tab PO DAILY PRN Xeljanz (tofacitinib) 5 mg PO DAILY NS HPI Comments Details: This is a 73-year-old male with seropositive nodular deforming RA who presents for follow-up. States that he is doing quite well overall. Compliant with his methotrexate and Xeljanz. Denies any cough, shortness of breath. [facility] Medical History Rheumatoid nodule of elbow Long-term use of immunosuppressant medication Hypertension GERD (gastroesophageal reflux disease) CKD (chronic kidney disease) stage 3, GFR 30-59 ml/min Aphasia as late effect of cerebrovascular accident Seropositive rheumatoid arthritis Social History Household Members: Family Housing: House Are you a primary physician primary care sports medicine to a significant other at home: No Do you presently have visiting nurse or other home services: No Alcohol intake: never Patient Tobacco Use Status: Former Tobacco user Years Smoked: Quit 14 years ago e-Cigarette/Vaping Use: Never Used service: No Current occupational status: employed 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 Review of Systems Card Denies dyspnea Resp Denies cough and Denies dyspnea Musc Reports deformity, Denies arthralgias, Denies joint swelling and Reports stiffness Physical Exam Vital Signs: Last Vital Signs Pulse 70 10/30/23 08:05 BP 134/70 10/30/23 08:05 Pulse Ox 90 L 10/30/23 08:05 Oxygen Delivery Method Room Air 10/30/23 08:05 BMI result Body Mass Index 28.9 Const General: cooperative, healthy appearing and comfortable Nutritional Appearance: overweight Orientation/consciousness: patient oriented x3 Limitations: no limitations HEENT Head: Yes normocephalic and Yes atraumatic Mouth: moist mucous membranes Resp Effort & Inspection: normal respiratory effort and able to speak in complete sentences Auscultation: clear to auscultation bilaterally Cardio Rate: regular rate Skin General skin exam: no rashes or lesions noted Neuro General: patient oriented x3 Extrem Other: Significant deforming nodular RA on top of bilateral hand osteoarthritis but there is no active synovitis Large rheumatoid nodules distal to both elbows Right wrist ulnar deviation at the MCPs Normal range of motion of hands, wrists, elbows and shoulders Excellent bilateral hand supervisor word processing strength No knee pain with full flexion-extension No ankle swelling or tenderness bilaterally Assessment & Plan Assessment & Plan (1) Seropositive rheumatoid arthritis: Comment: ONSET 2007 Long-standing history of polyarticular joint pain and swelling with positive high titer rheumatoid factor and anti-CCP levels Methotrexate started 2015 Humira ([id number]) - Stopped due to infections Xeljanz 09/30 - 2021 dosage reduced to just 5 mg daily due to some CKD. In Code(s): M05.9 - Rheumatoid arthritis with rheumatoid factor, unspecified Category: Medical Plan: This is a 73-year-old male with seropositive deforming nodular RA who presents for follow-up. This is his 1st visit with me. He used to follow-up with Renay Valentino and Dr. Benjamin before her. He remains on methotrexate 12.5 mg weekly, folic acid 1 mg daily and Xeljanz 5 mg daily. he is in remission on current management. Patient has history of stroke many years ago however this was before Xeljanz was started, not had any thromboembolic phenomenon since Xeljanz was started. Patient is aware of the black box warning of Xeljanz and its association with slightly increased risk of malignancy, cardiovascular events and thromboembolic phenomenon. I think in his case the benefit of continuing Xeljanz outweighs risk as poorly-controlled rheumatoid arthritis can definitely cause implications such as cardiovascular events, thromboembolic phenomenon Giving longstanding seropositive RA, it might be a good a day to screen patient for ILD. Will discuss PFTs with him next visit. Patient however is not symptomatic today from a respiratory standpoint Continue current meds. 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 His CKD seems stable Plan I spent 45 minutes reviewing patient's chart, evaluating patient, ordering diagnostic workup, counseling patient and documenting in the chart Orders: Orders C Reactive Protein Today M05.9 - Rheumatoid arthritis with rheumatoid factor, unspecified T Spot TB Today Z11.7 - Encounter for testing for latent tuberculosis infection Complete Blood Count Auto Diff 4 Months M05.9 - Rheumatoid arthritis with rheumatoid factor, unspecified, Z79.899 - Other nursing home (current) drug therapy Comprehensive Met. Panel 4 Months M05.9 - Rheumatoid arthritis with rheumatoid factor, unspecified, Z79.899 - Other termite exterminator (current) drug therapy Complete Blood Count Auto Diff Today M05.9 - Rheumatoid arthritis with rheumatoid factor, unspecified Comprehensive Met. Panel Today M05.9 - Rheumatoid arthritis with rheumatoid factor, unspecified Erythrocyte Sedimentation Rate Today M05.9 - Rheumatoid arthritis with rheumatoid factor, unspecified Hepatitis A,B,C Profile Today Z11.59 - Encounter for screening for other viral diseases C Reactive Protein 4 Months M05.9 - Rheumatoid arthritis with rheumatoid factor, unspecified, Z79.899 - Other termite exterminator (current) drug therapy Erythrocyte Sedimentation Rate 4 Months M05.9 - Rheumatoid arthritis with rheumatoid factor, unspecified, Z79.899 - Other nursing home (current) drug therapy Coding Level of Care Code Est Pt Level 5 (32919) Complex EM visit Add On G2211 Diagnoses Seropositive rheumatoid arthritis M05.9 Long-term use of immunosuppressant medication Z79.899 Stage 3b chronic kidney disease N18.32 Chronic kidney disease stage 3 subtype: stage 3b (GFR 30-44)
[2023-10-30 08:05] VITALS: BP 134/70; PULSE 70; O2SAT 90; BMI 28.9
== END 2023-10-30 08:22 | disposition home or self-care (01) ==
PROVIDERS: PCP Internal Medicine; Visit Provider Student in an Organized Health Care Education/Training Program
DX: M05.79 Rheumatoid arthritis with rheumatoid factor of multiple sites without organ or systems involvement (principal); Z79.899 Other long term (current) drug therapy; N18.32 Chronic kidney disease, stage 3b
CPT/HCPCS: 99215; G2211

== ENCOUNTER → 2023-10-30 07:57 | Outpatient (BNVA) | payer MEDICARE, MEDICAID, SELFPAY | PROVIDERS: PCP Internal Medicine; Visit Provider Student in an Organized Health Care Education/Training Program | DX: M05.9 Rheumatoid arthritis with rheumatoid factor, unspecified (principal); N18.32 Chronic kidney disease, stage 3b; Z79.899 Other long term (current) drug therapy | CPT/HCPCS: 36415; 80053; 85025; 85652; 86140; 86481; 86704; 86706; 86709; 86803; 87340; 99212 ==

== ENCOUNTER 2023-10-30 08:49 | Outpatient (REF) | payer MEDICARE, MEDICAID, SELFPAY ==
[2023-10-30 11:09] LABS: MANUAL DIFF FLAG NO
[2023-10-30 11:23] LABS: Basophils Absolute Auto 0.1 X10*3/uL (0.0-0.2); Basophils Percent Auto 0.7 % (0-2); Eosinophils Absolute Auto 0.2 X10*3/uL (0.0-0.4); Hematocrit 54.9 % (42.0-52.0); Hemoglobin 18.1 g/dl (14.0-18.0); Imm Gran Abs Auto 0.04 X10*3/uL (0.00-0.03); Imm Gran Pct Auto 0.4 % (0.0-0.4); Lymphocytes Absolute Auto 1.4 X10*3/uL (1.2-4.9); Lymphocytes Percent Auto 15.6 % (20-40); Mean Corpuscular Hemoglobin 29.1 pg (27.0-33.0); Mean Corpuscular Volume 88.1 fL (80.0-98.0); Mean Platelet Volume 8.7 fL (9.4-12.4); Neutrophils Absolute Auto 6.4 x10*3/uL (2.0-8.3); Neutrophils Percent Auto 70.3 % (45-73); Platelet Count 280 X10*3/uL (160-400); Red Blood Count 6.23 X10*6/uL (4.60-5.80); Red Cell Distribution Width 14.7 % (11.0-16.0); White Blood Count 9.2 X10*3/uL (4.8-10.8)
[2023-10-30 11:53] LABS: Erythrocyte Sedimentation Rate 10 MM/HR (0-15)
[2023-10-30 12:09] LABS: Alanine Aminotransferase 50 U/L (0-40); Albumin Level 3.8 g/dL (3.5-5.0); Alkaline Phosphatase 51 U/L (39-117); Anion Gap 12 (12-20); Aspartate Amino Transferase 40 U/L (5-37); Bilirubin Total 0.5 mg/dL (0.0-1.0); Blood Urea Nitrogen 22 mg/dL (9-16); C Reactive Protein 0.94 mg/dL (< or = 0.50); Calcium 9.2 mg/dL (8.4-10.2); Carbon Dioxide 24 mmol/L (22-29); Chloride 109 mmol/L (96-108); Estimated Glomerular Filt Rate 58; Glucose Random 106 mg/dL (60-115); Potassium 4.5 mmol/L (3.3-5.1); Sodium 140 mmol/L (135-145); Total Protein 8.1 g/dL (6.5-8.0)
[2023-10-30 12:23] LABS: HBS Num1 0.38 mIU/mL (0-7.99); HBc Num1 0.16 S/CO (0.00-0.79); Hepatitis A Antibody IgM 0.15 Index (0-0.79); Hepatitis B Core Antibody Nonreactive (Nonreactive); Hepatitis B Surface Antigen Negative (Negative); ~HepC Num1 0.07 S/CO (0.00-0.79); ~Hepatitis A Antibody IgM Nonreactive (Nonreactive); ~Hepatitis B Surface Antibody NONREACTIVE (Nonreactive); ~Hepatitis C Antibody Nonreactive (Nonreactive)
[2023-11-02 01:24] LABS: TS Negative Control Passed; TS Panel A 0; TS Panel B 0; TS Positive Control Passed; TSpotTB Negative (Negative)
== END 2023-10-30 08:50 | disposition home or self-care (01) ==
LOC: HO.10HDL 08:49
PROVIDERS: Visit Provider Student in an Organized Health Care Education/Training Program
DX: Z13.89 Encounter for screening for other disorder (principal)
CPT/HCPCS: 36415; 80053; 85025; 85652; 86140; 86481; 86704; 86706; 86709; 86803; 87340

== ENCOUNTER 2024-04-09 10:35 | Outpatient (REF) | payer MEDICARE, MEDICAID, SELFPAY ==
[2024-04-09 14:00] LABS: MANUAL DIFF FLAG NO
[2024-04-09 14:14] LABS: Basophils Percent Auto 0.5 % (0-2); Eosinophils Absolute Auto 0.1 X10*3/uL (0.0-0.4); Eosinophils Percent Auto 1.6 % (0-4); Hematocrit 53.8 % (42.0-52.0); Hemoglobin 17.5 g/dl (14.0-18.0); Imm Gran Abs Auto 0.04 X10*3/uL (0.00-0.03); Imm Gran Pct Auto 0.5 % (0.0-0.4); Lymphocytes Percent Auto 22.9 % (20-40); Mean Corpuscular HGB Conc 32.5 g/dl (31.0-36.0); Mean Corpuscular Hemoglobin 28.8 pg (27.0-33.0); Mean Corpuscular Volume 88.5 fL (80.0-98.0); Mean Platelet Volume 9.1 fL (9.4-12.4); Monocytes Absolute Auto 0.9 X10*3/uL (0.1-1.2); Monocytes Percent Auto 10.8 % (2-11); Neutrophils Absolute Auto 5.6 x10*3/uL (2.0-8.3); Neutrophils Percent Auto 63.7 % (45-73); Platelet Count 308 X10*3/uL (160-400); Red Blood Count 6.08 X10*6/uL (4.60-5.80); Red Cell Distribution Width 15.4 % (11.0-16.0); White Blood Count 8.7 X10*3/uL (4.8-10.8)
[2024-04-09 14:23] LABS: Alanine Aminotransferase 27 U/L (0-40); Albumin Level 3.6 g/dL (3.5-5.0); Alkaline Phosphatase 43 U/L (39-117); Anion Gap 8 (12-20); Aspartate Amino Transferase 27 U/L (5-37); Bilirubin Total 0.4 mg/dL (0.0-1.0); Blood Urea Nitrogen 24 mg/dL (9-16); C Reactive Protein 0.97 mg/dL (< or = 0.50); Calcium 8.9 mg/dL (8.4-10.2); Carbon Dioxide 28 mmol/L (22-29); Chloride 107 mmol/L (96-108); Estimated Glomerular Filt Rate 52; Glucose Random 138 mg/dL (60-115); Potassium 4.1 mmol/L (3.3-5.1); Sodium 139 mmol/L (135-145); Total Protein 7.6 g/dL (6.5-8.0)
[2024-04-09 14:56] LABS: Erythrocyte Sedimentation Rate 13 MM/HR (0-15)
== END 2024-04-09 10:36 | disposition home or self-care (01) ==
LOC: HO.10HDL 10:35
PROVIDERS: Visit Provider Student in an Organized Health Care Education/Training Program
DX: M05.9 Rheumatoid arthritis with rheumatoid factor, unspecified (principal); N18.32 Chronic kidney disease, stage 3b; Z79.631 Long term (current) use of antimetabolite agent
CPT/HCPCS: 36415; 80053; 85025; 85652; 86140; 99212

== ENCOUNTER 2024-04-09 11:01 | Outpatient (AMB) | payer MEDICARE, MEDICAID, SELFPAY ==
--- OUTSIDE RECORDS SUMMARY | 2024-04-09 11:04 | XMS_ITS | Clinical Summary ---
Author Organization Unknown Care Team Providers Care Customer Service Correspondence Clerk Name Role Phone SERGE OCHOA MD, ROBBIE Watts U albert MINAYA RN, ESVIN Unavailable Unavailable Payers Payer Name Policy Type Policy Number Effective Date Expira tion Date MEDICARE.NGS.PDGM [id number] Problems Condition Name Condition Details Condition Category Status Onset Date Resolution Date Last Treatment Date Treating Clinician Comments CUTANEOUS ABSCESS OF LEFT FOOT Active 06-09 00:00: 00 METHICILLIN SUSCEP STAPH INFCT CAUSING DIS CLASSD ELSWHR Active 07-07 00:00: 00 RHEUMATOID ARTHRITIS, UNSPECIFIED Active 04-15 00:00: 00 ATHSCL HEART DISEASE OF [place] CORONARY ARTERY W/O ANG PCTRS Active 04-15 00:00: 00 ESSENTIAL (PRIMARY) HYPERTENSION Active 04-15 00:00: 00 OBSTRUCTIVE SLEEP APNEA (ADULT) (PEDIATRIC) Active 04-15 00:00: 00 GASTRO-ESOPH AGEAL REFLUX DISEASE WITHOUT ESOPHAGITIS Active 04-15 00:00: 00 MALE ERECTILE DYSFUNCTION, UNSPECIFIED Active 04-15 00:00: 00 OTHER NONSPECIFIC ABNORMAL FINDING OF LUNG FIELD Active 04-15 00:00: 00 ALF (CURRENT) USE OF ANTITHROMBOT ICS/ANTIPLAT ELETS Active 04-15 00:00: 00 PERSONAL HISTORY OF NICOTINE DEPENDENCE Active 04-15 00:00: 00 ALF (CURRENT) USE OF OPIATE ANALGESIC Active 04-15 00:00: 00 Allergies, Adverse Reactions, Alerts Allergy Name Allergy Type Status Severity Reaction(s) Onset Date Inactive Date Treating Clinician Comments NO KNOWN ALLERGIES Propensity to adverse reactions Active 07-09 09:33: 13 Medications Ordered Medication Name Filled Medication Name Start Date Stop Date Current Medication? Ordering Clinician Indication Dosage Frequency Signature (SIG) Comments Components methotrexat e sodium 2.5 mg tablet 07-03 00:00: 00 Yes [id number] RA 5 tablet WEEKLY 5 tablet WEEKLY (route: oral) Med Classific ation: Antineopl astics oxycodone-a cetaminophe n 5 mg-325 mg tablet - 00:00: 00 Yes [id number] SLEEP/PAIN Per instruc tions AT BEDTIME FOR 28 DAYS Per instructio ns AT BEDTIME FOR 28 DAYS (route: oral) Med Classific ation: Analgesic , Anti-infl ammatory or Antipyret ic lisinopril 5 mg tablet - 00:00: 00 Yes [id number] HTN Per instruc tions EVERY DAY Per instructio ns EVERY DAY (route: oral) Med Classific ation: Cardiovas cular Therapy Agents meloxicam 15 mg tablet 2020-04 00:00: 00 07-03 23:59 :00 No [id number] PAIN Per instruc tions EVERY DAY Per instructio ns EVERY DAY (route: oral) Med Classific ation: Analgesic , Anti-infl ammatory or Antipyret ic folic acid 1 mg tablet 04-28 00:00: 00 Yes [id number] SUPPLEMENT Per instruc tions EVERY DAY Per instructio ns EVERY DAY (route: oral) Med Classific ation: Electroly te Balance-N utritiona l Products Aspirin Low Dose 81 mg tablet,shira yed release 07-08 00:00: 00 Yes [id number] PREVENT CLOT 1 tablet DAILY 1 tablet DAILY (route: oral) Med Classific ation: Hematolog ical Agents clopidogrel 75 mg tablet 07-08 00:00: 00 Yes [id number] PREVENT CLOT 1 tablet DAILY 1 tablet DAILY (route: oral) Med Classific ation: Hematolog ical Agents fenofibrate micronized 134 mg capsule 07-08 00:00: 00 Yes [id number] DECREASE LIPIDS 1 capsule DAILY 1 capsule DAILY (route: oral) Med Classific ation: Cardiovas cular Therapy Agents omeprazole 20 mg capsule,del ayed release 07-08 00:00: 00 Yes [id number] GERD 1 capsule DAILY 1 capsule DAILY (route: oral) Med Classific ation: Gastroint estinal Therapy Agents Vital Signs Vital Name Observation Time Observation Value Commen ts Temperature 2021-08-07 11:19:00.000 97.9 [degF] Temperature 2021-07-31 10:49:00.000 98.1 [degF] Temperature 2021-07-24 09:51:00.000 97.9 [degF] Temperature 2021-07-18 12:37:00.000 98.1 [degF] Temperature 2021-07-11 13:23:00.000 98 [degF] Temperature 2021-07-08 10:48:00.000 97.6 [degF] Height 2021-07-09 08:19:33.000 72 [in_us] Pulse 2021-08-07 11:19:00.000 64 /min Pulse 2021-07-31 10:49:00.000 80 /min Pulse 2021-07-24 09:51:00.000 68 /min Pulse 2021-07-18 12:37:00.000 76 /min Pulse 2021-07-11 13:23:00.000 80 /min Pulse 2021-07-08 10:48:00.000 71 /min O2 Saturation (%) 2021-08-07 11:19:00.000 95 % O2 Saturation (%) 2021-07-31 10:49:00.000 96 % O2 Saturation (%) 2021-07-24 09:51:00.000 96 % O2 Saturation (%) 2021-07-18 12:37:00.000 97 % O2 Saturation (%) 2021-07-11 13:23:00.000 95 % Respirations 2021-08-07 11:19:00.000 18 /min Respirations 2021-07-31 10:49:00.000 18 /min Respirations 2021-07-24 09:51:00.000 18 /min Respirations 2021-07-18 12:37:00.000 18 /min Respirations 2021-07-11 13:23:00.000 20 /min Respirations 2021-07-08 10:48:00.000 18 /min Weight (lbs) 2021-07-09 08:19:42.000 205 [lb_av] Systolic Blood Pressure 2021-08-07 11:19:00.000 124 mm [Hg] Systolic Blood Pressure 2021-07-31 10:49:00.000 140 mm [Hg] Systolic Blood Pressure 2021-07-24 09:51:00.000 120 mm [Hg] Systolic Blood Pressure 2021-07-18 12:37:00.000 150 mm [Hg] Systolic Blood Pressure 2021-07-11 13:23:00.000 128 mm [Hg] Systolic Blood Pressure 2021-07-08 10:48:00.000 128 mm [Hg] Diastolic Blood Pressure 2021-08-07 11:19:00.000 70 mm [Hg] Diastolic Blood Pressure 2021-07-31 10:49:00.000 78 mm [Hg] Diastolic Blood Pressure 2021-07-24 09:51:00.000 70 mm [Hg] Diastolic Blood Pressure 2021-07-18 12:37:00.000 70 mm [Hg] Diastolic Blood Pressure 2021-07-11 13:23:00.000 60 mm [Hg] Diastolic Blood Pressure 2021-07-08 10:48:00.000 64 mm [Hg] Plan of Treatment Planned Activity Planned Date Details Comments Future Scheduled Test SKILLED NU RSE TO ASSESS, EVALUATE, AND DEVELOP AN INDIVIDUALIZED PLAN OF CARE. AGENCY MAY ACCEPT ORDERS FROM CONSULTING PHYSICIANS SN TO OBSERVE/ASSESS RISK FOR FALLS AND INSTRUCT IN FALL PREVENTION, HOME SAFETY, MEDICATION MANAGEMENT, INFECTION PREVENTION, AND NUTRITION MANAGEMENT. SN MAY PERFORM O2 SATURATION LEVEL ON ADMISSION AND PRN FOR RESP STATUS CHANGES TO ASSESS PATIENT, WITH NOTIFICATION TO THE PHYSICIAN IF SATURATION IS 90% IN THE ABSENCE OF MORE SPECIFIC PARAMETERS FROM THE PHYSICIAN. AGENCY MAY PERFORM A RESUMPTION OF CARE VISIT FOLLOWING ANY HOSPITAL ADMISSION. SKILLED NURSE TO ASSESS/EVALUATE CO-MORBID CONDITIONS AND ANY NEW CONDITIONS THAT PRESENT THEMSELVES DURING THIS EPISODE TO IDENTIFY CHANGES AND INTERVENE TO MINIMIZE COMPLICATIONS. [code = SKILLED NURSE TO ASSESS, EVALUATE, AND DEVELOP AN INDIVIDUALIZED PLAN OF CARE. AGENCY MAY ACCEPT ORDERS FROM CONSULTING PHYSICIANS SN TO OBSERVE/ASSESS RISK FOR FALLS AND INSTRUCT IN FALL PREVENTION, HOME SAFETY, MEDICATION MANAGEMENT, INFECTION PREVENTION, AND NUTRITION MANAGEMENT. SN MAY PERFORM O2 SATURATION LEVEL ON ADMISSION AND PRN FOR RESP STATUS CHANGES TO ASSESS PATIENT, WITH NOTIFICATION TO THE PHYSICIAN IF SATURATION IS 90% IN THE ABSENCE OF MORE SPECIFIC PARAMETERS FROM THE PHYSICIAN. AGENCY MAY PERFORM A RESUMPTION OF CARE VISIT FOLLOWING ANY HOSPITAL ADMISSION. SKILLED NURSE TO ASSESS/EVALUATE CO-MORBID CONDITIONS AND ANY NEW CONDITIONS THAT PRESENT THEMSELVES DURING THIS EPISODE TO IDENTIFY CHANGES AND INTERVENE TO MINIMIZE COMPLICATIONS.] Future Scheduled Test MEDICATION MANAGEMENT; SKILLED NURSE TO REVIEW MEDICATIONS FOR INTERACTIONS, EFFECTIVENESS OF DRUG THERAPY, AND SIGNS/SYMPTOMS OF ADVERSE REACTIONS. MAY INSTRUCT AND REINFORCE MEDICATION TEACHING RELATED TO THE USE OF MEDICATIONS, DOSAGE, FREQUENCY, PURPOSE, SIDE EFFECTS, AND TO REPORT COMPLICATIONS. [code = MEDICATION MANAGEMENT; SKILLED NURSE TO REVIEW MEDICATIONS FOR INTERACTIONS, EFFECTIVENESS OF DRUG THERAPY, AND SIGNS/SYMPTOMS OF ADVERSE REACTIONS. MAY INSTRUCT AND REINFORCE MEDICATION TEACHING RELATED TO THE USE OF MEDICATIONS, DOSAGE, FREQUENCY, PURPOSE, SIDE EFFECTS, AND TO REPORT COMPLICATIONS.] Future Scheduled Test CARDIOVASC ULAR SYSTEM; SKILLED NURSE TO ASSESS AND TEACH RELATED TO ALTERED CARDIOVASCULAR STATUS TO MINIMIZE COMPLICATIONS AND REDUCE HOSPITALIZATION. [code = CARDIOVASCULAR SYSTEM; SKILLED NURSE TO ASSESS AND TEACH RELATED TO ALTERED CARDIOVASCULAR STATUS TO MINIMIZE COMPLICATIONS AND REDUCE HOSPITALIZATION.] Future Scheduled Test HYPERTENSI ON MANAGEMENT; SKILLED NURSE TO ASSESS/TEACH WARNING SIGNS AND SYMPTOMS TO AVOID HOSPITALIZATION. [code = HYPERTENSION MANAGEMENT; SKILLED NURSE TO ASSESS/TEACH WARNING SIGNS AND SYMPTOMS TO AVOID HOSPITALIZATION.] Future Scheduled Test SKILLED NU RSE TO PERFORM/TEACH PATIENT/CAREGIVER WOUND CARE TO LEFT HEEL ABSCESS (TYPE OF WOUND AND LOCATION): CLEANSE WITH WOUND CLEANSER APPLY MAXORB2 AG MAY APPLY SKIN BARRIER TO PERIWOUND PRN TO PREVENT MACERATION AND PROTECT PERIWOUND COVER WITH DCD SECURE WITH CONFORMING ROLL AND TAPE CHANGE DRESSING EVERY 3 DAYS AND PRN FOR DRESSING DISLODGEMENT [code = SKILLED NURSE TO PERFORM/TEACH PATIENT/CAREGIVER WOUND CARE TO LEFT HEEL ABSCESS (TYPE OF WOUND AND LOCATION): CLEANSE WITH WOUND CLEANSER APPLY MAXORB2 AG MAY APPLY SKIN BARRIER TO PERIWOUND PRN TO PREVENT MACERATION AND PROTECT PERIWOUND COVER WITH DCD SECURE WITH CONFORMING ROLL AND TAPE CHANGE DRESSING EVERY 3 DAYS AND PRN FOR DRESSING DISLODGEMENT ] Future Scheduled Test PAIN MANAG EMENT; SKILLED NURSE TO OBSERVE, ASSESS, AND PROVIDE EDUCATION ON PAIN MANAGEMENT TECHNIQUES. [code = PAIN MANAGEMENT; SKILLED NURSE TO OBSERVE, ASSESS, AND PROVIDE EDUCATION ON PAIN MANAGEMENT TECHNIQUES.] Future Scheduled Test FALL REDUC TION MANAGEMENT; NURSING TO PROVIDE SKILLED ASSESSMENT, EDUCATION, AND INTERVENTION TO IDENTIFY FALL RISK FACTORS SUCH MEDICATIONS THAT MAY CAUSE DIZZINESS, CHRONIC DISEASES, PSYCHOLOGICAL FACTORS, AND EMPOWER/EDUCATE PATIENT/CAREGIVER TO MINIMIZE FALL RISK. [code = FALL REDUCTION MANAGEMENT; NURSING TO PROVIDE SKILLED ASSESSMENT, EDUCATION, AND INTERVENTION TO IDENTIFY FALL RISK FACTORS SUCH MEDICATIONS THAT MAY CAUSE DIZZINESS, CHRONIC DISEASES, PSYCHOLOGICAL FACTORS, AND EMPOWER/EDUCATE PATIENT/CAREGIVER TO MINIMIZE FALL RISK.] Goal 2021-08-07 Patient Goal - TO GET BACK T O NORMAL Goal Provider Goal - A PLAN OF CARE WILL BE ESTABLISHED THAT MEETS THE PATIENTS NEEDS. PATIENT WILL DEMONSTRATE OXYGEN SATURATION WITHIN NORMAL LIMITS OR PATIENTS OPTIMAL LEVEL ESTABLISHED BY THE PHYSICIAN THROUGHOUT CARE. CHANGES TO CO-MORBID CONDITIONS AND ANY NEW CONDITIONS WILL BE IDENTIFIED AND REPORTED TO THE PHYSICIAN. Goal Provider Goal - PATIENT/CAREGIVER TO VERBALIZE, AND CONSISTENTLY DEMONSTRATE EFFECTIVE, SAFE MANAGEMENT OF MEDICATION INCLUDING KNOWLEDGE OF EFFECTIVENESS, POTENTIAL SIDE EFFECTS AND DRUG REACTIONS AND WHEN TO CONTACT THE APPROPRIATE CARE PROVIDER. PATIENT/CAREGIVER WILL BE ABLE TO VERBALIZE UNDERSTANDING OF MEDICATION REGIMEN AND ACCURATELY TAKE MEDICATIONS PRESCRIBED WITHOUT ADVERSE EFFECTS BY 09/05/21 Goal Provider Goal - PATIENT / CAREGIVER WILL VERBALIZE/DEMONSTRATE UNDERSTANDING OF MEASURES TO MANAGE ALTERED CARDIOVASCULAR STATUS BY 09/05/21 Goal Provider Goal - PATIENT / CAREGIVER WILL VERBALIZE/DEMONSTRATE AN ABILITY TO ADHERE TO SELF-MANAGEMENT OF HTN TO MINIMIZE COMPLICATIONS AND AVOID HOSPITALIZATION BY END OF EPISODE. Goal Provider Goal - PATIENT / CAREGIVER WILL VERBALIZE/DEMONSTRATE ABILITY TO PERFORM WOUND CARE. WOUND STATUS WILL IMPROVE EVIDENCED BY A DECREASE IN SIZE, DRAINAGE, ABSENCE OF INFECTION, AND DECREASED PAIN BY 09/05/21 Goal Provider Goal - PATIENT / CAREGIVER WILL VERBALIZE / DEMONSTRATE UNDERSTANDING OF PAIN CONTROL MEASURES BY 09/05/21 Goal Provider Goal - PATIENT/CAREGIVER ABLE TO IDENTIFY FALL RISK FACTORS AND IMPLEMENT STRATEGIES TO MINIMIZE FALL RISK. PATIENT/CAREGIVER WILL VERBALIZE/DEMONSTRATE AN ABILITY TO ADHERE TO FALL REDUCTION SELF MANAGEMENT AND LIFE-STYLE CHANGES AT DISCHARGE. PERSONAL GOAL(S) STATED BY PATIENT/CAREGIVER WILL BE MET BY 09/05/21 Reason for Visit INDEPENDENT IN THE COMMUNITY Encounters Start Date/Time End Date/Time Encounter Type Admission Type Attending [facility] Care Facility Care Department Encounter ID Discharge Date Discharge Status Discharge Condition Discharge Reason Percent Goals Met 2021-07-08 00:00:00 2021-08-07 00:00:00 Outpatient NEW ADMISSION ESVIN MINAYA [facility] [id number] 2021-08-07 00:00:00 DISCHARGE TO HOME OR SELF CARE INDEPENDEN T IN THE COMMUNITY HH OR PAL- GOALS MET 100.00
--- OUTSIDE RECORDS SUMMARY | 2024-04-09 11:04 | XMS_ITS | Clinical Summary ---
Author Organization Unknown Care Team Providers Care Billing Clerk Name Role Phone SERGE OCHOA MD, ROBBIE Watts U albert MINAYA RN, ESVIN Unavailable Unavailable Payers Payer Name Policy Type Policy Number Effective Date Expira tion Date MEDICARE.NGS.PDGM [id number] Problems Condition Name Condition Details Condition Category Status Onset Date Resolution Date Last Treatment Date Treating Clinician Comments CUTANEOUS ABSCESS OF LEFT FOOT Active 06-09 00:00: 00 METHICILLIN SUSCEP STAPH INFCT CAUSING DIS CLASSD ELSWHR Active 07-07 00:00: 00 RHEUMATOID ARTHRITIS, UNSPECIFIED Active 04-15 00:00: 00 ATHSCL HEART DISEASE OF [place] CORONARY ARTERY W/O ANG PCTRS Active 04-15 00:00: 00 ESSENTIAL (PRIMARY) HYPERTENSION Active 04-15 00:00: 00 OBSTRUCTIVE SLEEP APNEA (ADULT) (PEDIATRIC) Active 04-15 00:00: 00 GASTRO-ESOPH AGEAL REFLUX DISEASE WITHOUT ESOPHAGITIS Active 04-15 00:00: 00 MALE ERECTILE DYSFUNCTION, UNSPECIFIED Active 04-15 00:00: 00 OTHER NONSPECIFIC ABNORMAL FINDING OF LUNG FIELD Active 04-15 00:00: 00 INTERMEDIATE (CURRENT) USE OF ANTITHROMBOT ICS/ANTIPLAT ELETS Active 04-15 00:00: 00 PERSONAL HISTORY OF NICOTINE DEPENDENCE Active 04-15 00:00: 00 INTERMEDIATE (CURRENT) USE OF OPIATE ANALGESIC Active 04-15 [...] 2.5 mg tablet 07-03 00:00: 00 Yes [id number] RA 5 tablet WEEKLY 5 tablet WEEKLY (route: oral) Med Classific ation: Antineopl astics oxycodone-a cetaminophe n 5 mg-325 mg tablet - 00:00: 00 Yes [id number] SLEEP/PAIN Per instruc tions AT BEDTIME FOR 28 DAYS Per instructio ns AT BEDTIME FOR 28 DAYS (route: oral) Med Classific ation: Analgesic , Anti-infl ammatory or Antipyret ic lisinopril 5 mg tablet - 00:00: 00 Yes [id number] HTN Per instruc tions EVERY DAY Per instructio ns EVERY DAY (route: oral) Med Classific ation: Cardiovas cular Therapy Agents meloxicam 15 mg tablet 2020-04 00:00: 00 07-03 23:59 :00 No [id number] PAIN Per instruc tions EVERY DAY Per instructio ns EVERY DAY (route: oral) Med Classific ation: Analgesic , Anti-infl ammatory or Antipyret ic folic acid 1 mg tablet 04-28 00:00: 00 Yes [id number] SUPPLEMENT Per instruc tions EVERY DAY Per instructio ns EVERY DAY (route: oral) Med Classific ation: Electroly te Balance-N utritiona l Products Aspirin Low Dose 81 mg tablet,shira yed release 07-08 00:00: 00 Yes [id number] PREVENT CLOT 1 tablet DAILY 1 tablet DAILY (route: oral) Med Classific ation: Hematolog ical Agents clopidogrel 75 mg tablet 07-08 00:00: 00 Yes [id number] PREVENT CLOT 1 tablet DAILY 1 tablet DAILY (route: oral) Med Classific ation: Hematolog ical Agents fenofibrate micronized 134 mg capsule 07-08 00:00: 00 Yes [id number] DECREASE LIPIDS 1 capsule DAILY 1 capsule DAILY (route: oral) Med Classific ation: Cardiovas cular Therapy Agents omeprazole 20 mg capsule,del ayed release 07-08 00:00: 00 Yes [id number] GERD 1 capsule DAILY 1 capsule DAILY [...] End Date/Time Encounter Type Admission Type Attending [facility] Care Facility Care Department Encounter ID Discharge Date Discharge Status Discharge Condition Discharge Reason Percent Goals Met 2021-07-08 00:00:00 2021-08-07 00:00:00 Outpatient NEW ADMISSION ESVIN MINAYA [facility] [id number] 2021-08-07 00:00:00 DISCHARGE TO HOME OR SELF CARE INDEPENDEN T IN THE COMMUNITY HH OR PAL- GOALS MET 100.00
--- NOTE | 2024-04-09 11:05 | A.OFFVIS_ITS ---
Vital Signs 04/09/24 11:11 Height 6 ft Weight 217 lb 13.067 oz BMI 29.5 BP 120/62 Blood Pressure Location Lt brachial Position Sitting Pulse 82 Pulse Source Pulse Oximeter Pulse Oximetry (%) 96 Oxygen Delivery Method Room Air Intake Visit Reasons: RA Intake Note: Patient presents for RA. Allergies No Known Allergies Allergy (Verified 04/09/24 11:10) Medication List - Last Reconciled 04/09/24 by Danisha Lubin MD aspirin (Adult Low Dose Aspirin) 81 mg PO DAILY clopidogrel (Plavix) 75 mg PO DAILY fenofibrate micronized 134 mg PO DAILY folic acid 1 mg PO DAILY ibuprofen 800 mg PO DAILY PRN ketoconazole 2% topical lisinopril 5 mg PO DAILY methotrexate sodium 12.5 mg (5 x 2.5 mg) PO QWEEK omeprazole 20 mg PO DAILY oxycodone-acetaminophen 5-325 mg 1 tab PO DAILY PRN Xeljanz (tofacitinib) 5 mg PO DAILY NS HPI Comments Details: This is a 73-year-old male with seropositive nodular deforming RA who presents for follow-up. States that he is doing quite well overall. Compliant with his methotrexate and Xeljanz. Denies any cough, shortness of breath. [facility] Medical History Rheumatoid nodule of elbow Long-term use of immunosuppressant medication Hypertension GERD (gastroesophageal reflux disease) CKD (chronic kidney disease) stage 3, GFR 30-59 ml/min Aphasia as late effect of cerebrovascular accident Seropositive rheumatoid arthritis Social History Household Members: Family Housing: House Are you a primary rn patient care to a significant other at home: No Do you presently have visiting nurse or other home services: No Alcohol intake: never Patient Tobacco Use Status: Former Tobacco user Years Smoked: Quit 14 years ago e-Cigarette/Vaping Use: Never Used service: No Current occupational status: employed 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 Review of Systems Card Denies dyspnea Resp Denies cough and Denies dyspnea Musc Reports deformity, Denies arthralgias, Denies joint swelling and Reports stiffness Physical Exam Vital Signs: Last Vital Signs Pulse 82 04/09/24 11:11 BP 120/62 04/09/24 11:11 Pulse Ox 96 04/09/24 11:11 Oxygen Delivery Method Room Air 04/09/24 11:11 BMI result Body Mass Index 29.5 Const General: cooperative, healthy appearing and comfortable Nutritional Appearance: overweight Orientation/consciousness: patient oriented x3 Limitations: no limitations HEENT Head: Yes normocephalic and Yes atraumatic Mouth: moist mucous membranes Resp Effort & Inspection: normal respiratory effort and able to speak in complete sentences Cardio Rate: regular rate Skin General skin exam: no rashes or lesions noted Neuro General: patient oriented x3 Extrem Other: Significant deforming nodular RA on top of bilateral hand osteoarthritis but there is no active synovitis Large rheumatoid nodules distal to both elbows Right wrist ulnar deviation at the MCPs Normal range of motion of hands, wrists, elbows and shoulders 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 In Code(s): M05.9 - Rheumatoid arthritis with rheumatoid factor, unspecified Category: Medical Plan: This is a 73-year-old male with seropositive deforming nodular RA who presents for follow-up. He remains on methotrexate 12.5 mg weekly, folic acid 1 mg daily and Xeljanz 5 mg daily. he is in remission on current management. Patient has history of stroke many years ago however this was before Xeljanz was started, not had any thromboembolic phenomenon since Xeljanz was started. Patient is aware of the black box warning of Xeljanz and its association with slightly increased risk of malignancy, cardiovascular events and thromboembolic phenomenon. I think in his case the benefit of continuing Xeljanz outweighs risk as poorly-controlled rheumatoid arthritis can definitely cause complications such as cardiovascular events, thromboembolic phenomenon and further joint damage and deformity Labs a few months ago showed mild transaminitis. Reduce methotrexate to 7.5 mg weekly Continue other meds as prescribed Labs before next visit in 4 months (2) Long-term use of immunosuppressant medication: Code(s): Z79.899 - Other care home (current) drug therapy Category: Medical Plan: Monitor safety labs for methotrexate and Xeljanz (3) CKD (chronic kidney disease) stage 3, GFR 30-59 ml/min: Code(s): N18.30 - Chronic kidney disease, stage 3 unspecified Category: Medical Qualifiers: Chronic kidney disease stage 3 subtype: stage 3b (GFR 30-44) Qualified Code(s): N18.32 - Chronic kidney disease, stage 3b Plan: As mentioned above Xeljanz dose was lowered in previous years due to CKD. Monitor kidney function closely Plan I spent 25 minutes reviewing patient's chart, evaluating patient, ordering diagnostic workup, counseling patient and documenting in the chart Orders: Orders Erythrocyte Sedimentation Rate 4 Months M05.9 - Rheumatoid arthritis with rheumatoid factor, unspecified, Z79.899 - Other care home (current) drug therapy Complete Blood Count Auto Diff 4 Months M05.9 - Rheumatoid arthritis with rheumatoid factor, unspecified, Z79.899 - Other intermediate project manager (current) drug therapy Comprehensive Met. Panel 4 Months M05.9 - Rheumatoid arthritis with rheumatoid factor, unspecified, Z79.899 - Other intermediate project manager (current) drug therapy C Reactive Protein 4 Months M05.9 - Rheumatoid arthritis with rheumatoid factor, unspecified, Z79.899 - Other intermediate project manager (current) drug therapy Coding Level of Care Code Est Pt Level 4 (05853) Complex EM visit Add On G2211 Diagnoses Seropositive rheumatoid arthritis M05.9 Long-term use of immunosuppressant medication Z79.899 Stage 3b chronic kidney disease N18.32 Chronic kidney disease stage 3 subtype: stage 3b (GFR 30-44)
[2024-04-09 11:11] VITALS: BP 120/62; PULSE 82; O2SAT 96; BMI 29.5
== END 2024-04-09 11:54 | disposition home or self-care (01) ==
PROVIDERS: PCP Internal Medicine; Visit Provider Student in an Organized Health Care Education/Training Program
DX: M05.79 Rheumatoid arthritis with rheumatoid factor of multiple sites without organ or systems involvement (principal); Z79.899 Other long term (current) drug therapy; N18.32 Chronic kidney disease, stage 3b
CPT/HCPCS: 99214; G2211

== ENCOUNTER 2024-08-10 07:29 | Outpatient (REF) | payer MEDICARE, MEDICAID, SELFPAY ==
--- OUTSIDE RECORDS SUMMARY | 2024-08-10 07:31 | XMS_ITS | Clinical Summary ---
Author Organization [address] [facility] Address [address] [place] [address] Phone Care Team Providers Care Supply Chain Director Name Role Phone Jerilyn Hyatt MD Primary Care Prov ider Allergies No known active allergies Medications aspirin 325 mg tablet Take 325 mg by mouth daily. Active cetirizine (ZyrTEC) 10 mg tablet Take 1 Tablet by mouth daily. - Oral Active folic acid (FOLVITE) 1 mg tablet Take 1 mg by mouth daily. Active ibuprofen (ADVIL,MOTRIN) 800 mg tablet Take 1 tablet (800 mg total) by mouth every 8 (eight) hours if needed. Active methotrexate 2.5 mg tablet Take by mouth 3 (three) times a week. Active tofacitinib 5 mg tablet Take by mouth. Active UNABLE TO FIND Med Name: Mix equal parts:MAALOX SUSP/LIDOCAI NE VISCOUS 2 % MT SOLN/BENADRY L 12.5MG/5ML Active clopidogreL (PLAVIX) 75 mg tablet Take 1 tablet (75 mg total) by mouth 1 (one) time each day. 90 tablet 03/03/20 24 Active fenofibrate micronized (LOFIBRA) 134 mg capsule Take 1 capsule (134 mg total) by mouth 1 (one) time each day with breakfast. 90 capsule 03/03/20 24 Active lisinopriL (PRINIVIL,ZEST RIL) 20 mg tablet Take 1 tablet (20 mg total) by mouth 1 (one) time each day. 30 each 5 04/20/19 25 025 Active sildenafiL (VIAGRA) 100 mg tablet Take 1 tablet (100 mg total) by mouth if needed for erectile dysfunction. 30 tablet 04/20/19 25 Active omeprazole (PriLOSEC) [address] capsule TAKE 1 CAPSULE BY MOUTH 1 TIME EACH DAY. DO NOT CRUSH OR CHEW. 90 capsule 1 06/04/19 25 Active oxyCODONE-acet aminophen (PERCOCET) 5-325 mg per tablet Take 2 tablets by mouth at bedtime. Max Daily Amount: 2 tablets 56 tablet 07/17/19 25 Active citalopram (CeleXA) 10 mg tablet Take 1 tablet (10 mg total) by mouth 1 (one) time each day. 30 each 5 07/22/19 25 025 Active clobetasoL (TEMOVATE) 0.05 % ointment APPLY TO NECK TWICE DAILY NEEDED FLARES 025 Discontinued ciclopirox 1 % shampoo APPLY TO SCALP 3 TIMES A WEEK , LEAVE ON 5 MINUTES THEN WASH OFF 025 Discontinued ketoconazole (NIZORAL) 2 % shampoo APPLY 5 TO 10 ML TO WET SCALP, LATHER, LEAVE ON 3 TO 5 MINUTES, AND RINSE APPLY TWICE WEEKLY FOR 2 TO 4 WEEKS. 03/11/20 23 025 Discontinued tacrolimus (PROTOPIC) 0.1 % ointment APPLY TO SCALP AND NECK TWICE A DAY NEEDED FOR FLARES 025 Discontinued oxyCODONE-acet aminophen (PERCOCET) 5-325 mg per tablet Take 2 tablets by mouth at bedtime. Max Daily Amount: 2 tablets 56 tablet 06/18/19 25 025 Discontinued(Re order) Active Problems Problem Noted Date Diagnosed Date Opiate analgesic contract exists 04/20/2024 History of herpes zoster 02/25/2024 Prediabetes 01/23/2024 Controlled type 2 diabetes m ellitus with diabetic neuropathy, without long-term current use of insulin ([facility] V24, [facility] V28) 08/13/2023 Hyperlipidemia 02/15/2023 CAD (coronary artery disease) 02/12/2019 Carotid artery disease ([facility] V24) 02/12/2019 CKD (chronic kidney disease) stage 3, GFR 30-59 ml/min ([facility] V24, [facility] V28) 02/12/2019 Erectile dysfunction 02/12/2019 GERD (gastroesophageal reflux disease) 9 Osteoarthritis 02/12/2019 Overview (01/23/2024): Knees, Hands Relative polycythemia 02/12/2019 Overview (01/23/2024): 01/01 No further Hematology w/u needed Emphysema lung ([facility] V24, [facility] V28) 2017 Overview (01/23/2024): LDCT following at [facility] Fatty liver 03/17/2018 Overview (01/23/2024): Incidental found on LDCT Osteopenia 03/17/2018 Overview (01/23/2024): Incidental found on LDCT Pulmonary nodules 03/17/2018 Overview (01/23/2024): LDCT, following with [facility] Carotid stenosis, asymptomatic, bilateral 2017 PAD (peripheral artery disease) ([facility] V24) Post herpetic neuralgia 07/10/2017 Overview (01/23/2024): Shingles 08/2018 Seropositive rheumatoid arth ritis of multiple joints ([facility] V24, [facility] V28) 03/28/2016 Overview (01/23/2024): ONSET 2007 Long-standing history of polyarticular joint pain and swelling with positive high titer rheumatoid factor and anti-CCP levels Methotrexate started 2015 Humira ([id number]) - Stopped due to infections Xeljanz 09/30 Kidney stones 08/11/2014 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) 12/09/2013 Overview (01/23/2024): expressive aphasia Essential hypertension 12/09/2013 Peripheral vascular disease ([facility] V24) 2013 Encounters Date Type Department Care Team Description 07/21/2024 10:50 AM EDT Lab Draw [place] [address] [place] [address] Controlled type 2 diabetes mellitus with diabetic neuropathy, without long-term current use of insulin ([facility] V24, [facility] V28); Hyperlipidemia, unspecified hyperlipidemia type 07/21/2024 9:30 AM EDT Office Visit [address] [phone] Parth Burris PA Depression, unspecified depression type (Primary Dx); Essential hypertension; Hyperlipidemia, unspecified hyperlipidemia type; 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); Controlled type 2 diabetes mellitus with diabetic neuropathy, without long-term current use of insulin ([facility] V24, [facility] V28); Opiate analgesic contract exists; Seropositive rheumatoid arthritis of multiple joints ([facility] V24, [facility] V28) 07/01/[address] [phone] Jerilyn Barnard MD Referral 06/24/2024 1:30 PM EDT Office Visit Vascular Surgery - [place] [address] [place] [address] Sydni James PA Carotid stenosis, asymptomatic, bilateral (Primary Dx); History of left-sided carotid endarterectomy 05/18/2024 11:15 AM EST Ancillary Procedure [facility] [address] [place] [phone] Carotid stenosis, asymptomatic, bilateral; History of left-sided carotid endarterectomy from Last 3 Months Immunizations Name Administration Dates Next Due Influenza trivalent, 0.5mL ( Fluzone High-dose) 65yo and older 02/26/2020,04/10/2016 Influenza trivalent, with preservative (Fluzone; Afluria) 6mo and older 02/26/2020 [facility] SARS-CoV-2 COVID-19, mRNA, LNP-S, preservative free 04/19/2021 [facility] SARS-CoV-2 COVID-19, mRNA, LNP-S, preservative free 04/19/2021,07/14/2020,06/23/2020,2020 Pneumococcal conjugate 13 va lent (Prevnar 13, PCV13) 2mo and older 02/26/2020 Pneumococcal conjugate 20 va lent (Prevnar 20, PCV 20) 2mo and older 11/12/2023 Td Tetanus diptheria (Tdvax) 7yo and older 06/04/2021 Tdap Tetanus diptheria acell ular pertussis (Boostrix; Adacel) 7yo and older 12/05/2022 Surgical History Surgery Date Site/Laterality Comments CAROTID ENDARTERECTOMY 08/18/2013 Left PROCEDURE: HISTORICAL CAROTID ENDART COLONOSCOPY 2014 PROCEDURE: HISTORICAL COLONOSCOPY; COMMENT: Normal colonoscopy Medical History Medical History Date Comments Peripheral vascular disease ([facility] V24) 12/09/2013 DX:Peripheral vascular disea se ([facility]) 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) 12/09/2013 DX:Aphasia as late effe ct of cerebrovascular accident (CVA); COMMENT: expressive aphasia Rheumatoid arthritis ([facility] V24, [facility] V28) 03/28/2016 DX:Rheumatoid arthritis ([facility] ); COMMENT: ONSET 2007 Long-standing history of polyarticular joint pain and swelling with positive high titer rheumatoid factor and anti-CCP levels Methotrexate started 2015 Humira ([id number]) - Stopped due to infections Xeljanz 09/30 CAD (coronary artery disease) 02/12/2019 DX :CAD (coronary artery disease) Post herpetic neuralgia 07/10/2017 DX:Post herpetic neuralgia; COMMENT: Shingles 08/2018 Carotid artery disease ([facility] V24) 02/12/2019 DX:Carotid artery disease ([facility]) Pulmonary nodules 03/17/2018 DX:Pulmonary n odules; COMMENT: LDCT, following with EM[facility] Erectile dysfunction 02/12/2019 DX:Erectile dysfunction GERD (gastroesophageal reflu x disease) 02/12/2019 DX:GERD (gastroesophageal re flux disease) CKD (chronic kidney disease) stage 3, GFR 30-59 ml/min ([facility] V24, [facility] V28) 02/12/2019 DX:CKD (chronic kidney disea se) stage 3, GFR 30-59 ml/min ([facility]) Osteoarthritis 02/12/2019 DX:Osteoarthriti s; COMMENT: Knees, Hands Relative polycythemia 02/12/2019 DX:Relativ e polycythemia; COMMENT: 01/01 No further Hematology w/u needed Carotid stenosis, asymptomat ic, bilateral 03/10/2018 DX:Carotid stenosis, asympto matic, bilateral Emphysema lung ([facility] V24, [facility] V28) 03/17/2018 DX:Emphysema lung (HCC); COM MENT: LDCT following at [facility] Fatty liver 03/17/2018 DX:Fatty liver; COMMENT: Incidental found on LDCT Hypertension 12/09/2013 DX:Hypertension Kidney stones 08/11/2014 DX:Kidney stones Osteopenia 03/17/2018 DX:Osteopenia; C OMMENT: Incidental found on LDCT PAD (peripheral artery disea se) ([facility] V24) 03/10/2018 DX:PAD (peripheral artery di sease) ([facility]) Family History Medical History Relation Name Comments Crohn's disease Brother 1 No Known Problems Brother 2 Diabetes Daughter 1 No Known Problems Daughter 2 Bladder Cancer Father Diabetes Father Stroke Father Diabetes Mother No Known Problems Sister 1 No Known Problems Sister 2 No Known Problems Son Relation Name Status Comments Brother 1 Alive Brother 2 Alive Daughter 1 Alive Daughter 2 Alive Father Maternal Grandfather Maternal Grandmother Mother Paternal Grandfather Paternal Grandmother Sister 1 Alive Sister 2 Alive Son Alive Social History Tobacco Use Types Packs/Day Years Used Date Smoking Tobacco: Former Cigarettes 2 39 0 04/15/1965 - 04/15/2004 Smokeless Tobacco: Never Tobacco Cessation:Counseling Given: Not Answered Alcohol Use Standard Drinks/Week Comments No 0 (1 standard drink = 0.6 oz pur e alcohol) Sex and Gender Information Value Date Recorded Sex Assigned at Not on file Legal Sex Male 5:37 PM EST Gender Identity Not on file Sexual Orientation Not on file Obstetrics History Last Filed Vital Signs Vital Sign Reading Time Taken Comments Blood Pressure 143/71 07/21/2024 9:14 AM EDT Pulse 71 07/21/2024 9:14 AM EDT Temperature 36.5 ??C (97.7 ??F) 07/21/2024 9:14 AM ED T Respiratory Rate - - Oxygen Saturation - - Inhaled Oxygen Concentration - - Weight 95.3 kg (210 lb) 07/21/2024 9:14 AM EDT Height 182.9 cm (6') 07/21/2024 9:14 AM EDT Body Mass Index 28.48 07/21/2024 9:14 AM EDT Plan of Treatment Upcoming Encounters Date Type Department Care Team (Late st Contact Info) Description 08/31/2024 9:45 AM EDT Office Visit Adult Medicine [facility] [address] [place] [phone] Jerilyn Hyatt MD [address] [place] [address] 11/06/2024 8:45 AM EDT Office Visit [facility] [place] [address] [place] [phone] Jerilyn Hyatt MD [address] [place] [address] 05/27/2025 8:30 AM EST Ancillary Procedure [facility] [place] [address] [facility] [address] [place] [address] 06/28/2025 9:30 AM EDT Office Visit Vascular Surgery - [place] [address] [facility] [place] [address] [place] [address] Sydni James PA [address] [facility] [place] [address] [place] [address] Health Maintenance Due Date Last Done Comments Diabetes: Annual Retina Eye Exam 06/22/1959 Zoster Vaccines (1 of 2) 06/22/1999 Colorectal Cancer Screening: Colonoscopy 03/24/2022 Falls Risk Assessment 03/24/2022 Medicare Annual Wellness Visit 03/24/2022 Social Influencers of Health Screening 03/24/2022 Diabetes: Annual Urine Albumin-Creatinine Ratio (uACR) 11/08/2023 07/31/2021 COVID-19 Vaccine ( season) 2023 04/19/2021, 04/19/2021, 07/14/2020, Additional history exists RSV Immunization Adult Patients (1 - 1-dose 75+ series) 2024 Depression Screening 11/11/2024 11/12/2023 Influenza Vaccine (Season Ended) 2024 02/26/2020, 02/26/2020, 04/10/2016 Diabetes: Annual Foot Exam 01/13/2025 01/14/2024 Diabetes: Blood Sugar Control Test (HGBA1C) 01/20/2025 07/21/2024, 11/12/2023, 11/12/2023, Additional history exists Diabetes: Annual GFR (Glomerular Filtration Rate) 07/21/2025 07/21/2024, 11/12/2023, 11/12/2023, Additional history exists Hypertension/CHF/CAD Annual BMP Blood Test 07/21/2025 07/21/2024, 11/12/2023, 11/12/2023, Additional history exists Cholesterol Screening (Lipid Panel) 07/21/2029 07/21/2024, 11/12/2023, 11/12/2023 DTaP,Tdap,and Td Vaccines (3 - Td or Tdap) 12/05/2032 12/05/2022, 06/04/2021 Hepatitis C Screening Completed 03/13/2016 Abdominal Aortic Aneurysm (AAA) Screen Completed 07/10/2017 Pneumococcal Vaccine: 50+ Years Completed 11/12/2023, 02/26/2020 HIB Vaccines Aged Out No longer eligi ble based on patient's age to complete this topic HPV Vaccines Aged Out No longer eligi ble based on patient's age to complete this topic Hepatitis A Vaccines Aged Out No long er eligible based on patient's age to complete this topic Hepatitis B Vaccines Aged Out No long er eligible based on patient's age to complete this topic IPV Vaccines Aged Out No longer eligi ble based on patient's age to complete this topic MMR Vaccines Aged Out No longer eligi ble based on patient's age to complete this topic Meningococcal ACWY Vaccine Aged Out N o longer eligible based on patient's age to complete this topic Meningococcal B Vaccine Aged Out No l onger eligible based on patient's age to complete this topic RSV Immunization Patients Under 20 months Aged Out No longer eligible based on patient's age to complete this topic Varicella Vaccines Aged Out No longer eligible based on patient's age to complete this topic Procedures Procedure Name Priority Date/Time Associated Diagnosis Comments LIPID PANEL WITH REFLEX TO DIRECT LDL Routine 07/21/2024 10:52 AM EDT Hyperlipidemia, unspecified hyperlipidemia type COMPREHENSIVE METABOLIC PANEL Routine 07/21/2024 10:52 AM EDT Hyperlipidemia, unspecified hyperlipidemia type HEMOGLOBIN A1C Routine 07/21/2024 10:52 AM EDT Controlled type 2 diabetes mellitus with diabetic neuropathy, without long-term current use of insulin ([facility] V24, [facility] V28) VAS US DUPLEX CAROTID BILATERAL Routine 05/18/2024 11:02 AM EST Carotid stenosis, asymptomatic, bilateral History of left-sided carotid endarterectomy DIABETES FOOT EXAM Routine 01/14/2024 DEPRESSION SCREENING Routine 11/12/2023 URINE ALBUMIN CREATININE RATIO Routine 07/31/2021 ABDOMINAL AORTIC ANEURYSM SCRREN Routine 07/10/2017 HEPATITIS C SCREENING Routine 03/13/2016 from Last 3 Months or Most Recently Relevant to Health Maintenance Results * (ABNORMAL) Lipid panel with reflex to direct LDL (07/21/2024 10:52 AM EDT) Cholesterol 222(H) 0 - 200 mg/dL LAB CHEMISTRY METHOD 07/21/2024 3:24 PM EDT [facility] Triglycerides 388(H) 0 - 150 mg/dL LAB CHEMISTRY METHOD 07/21/2024 3:24 PM EDT [facility] HDL 35(L) >=40 mg/dL LAB CHEMISTRY METHOD 07/21/2024 3:24 PM EDT [facility] LDL Calculated 109(H) 0 - 100 mg/dL LAB CHEMISTRY METHOD 07/21/2024 3:24 PM EDT [facility] VLDL Cholesterol Dany 77.6 mg/dL LAB CHEMISTRY METHOD 07/21/2024 3:24 PM EDT [facility] Non HDL Chol. (LDL+VLDL) 187(H) <145 mg/dL LAB CHEMISTRY METHOD 07/21/2024 3:24 PM EDT [facility] Chol/HDL Ratio 6.3(H) 0.0 - 4.4 LAB CHEMISTRY METHOD 07/21/2024 3:24 PM EDT [facility] Blood Venous blood specimen / Unknown Venipuncture / Unknown 07/21/2024 10:52 AM EDT 07/21/2024 10:52 AM EDT us Parth DAWSON LAB BLOOD ORDERABLES Final Res ult Performing Organization Address [facility]/ZIP Co de Phone Number [facility] [address] [place] [address], [place] [phone] * (ABNORMAL) Hemoglobin A1c (07/21/2024 10:52 AM EDT) Hemoglobin A1C 6.8(H) <6.5 % LAB CHEMISTRY METHOD 07/21/2024 9:17 PM EDT [facility] Mean Bld Glu Estim. 148 mg/dL LAB CHEMISTRY METHOD 07/21/2024 9:17 PM EDT [facility] Blood Venous blood specimen / Unknown Venipuncture / Unknown 07/21/2024 10:52 AM EDT 07/21/2024 10:52 AM EDT Parth DAWSON LAB BLOOD ORDERABLES Final Res ult [facility] [address] [place] [address], [place] [phone] * (ABNORMAL) Comprehensive metabolic panel (07/21/2024 10:52 AM EDT) Sodium 138 133 - 145 mmol/L LAB CHEMISTRY METHOD 07/21/2024 3:24 PM EDT [facility] Potassium 4.7 3.5 - 5.5 mmol/L LAB CHEMISTRY METHOD 07/21/2024 3:24 PM [facility] Chloride 107 96 - 110 mmol/L LAB CHEMISTRY METHOD 07/21/2024 3:24 PM [facility] CO2 26 21 - 32 mmol/L LAB CHEMISTRY METHOD 07/21/2024 3:24 PM [facility] Anion Gap 5 3 - 11 LAB CHEMISTRY METHOD 07/21/2024 3:24 PM [facility] Glucose 113(H) 70 - 100 mg/dL LAB CHEMISTRY METHOD 07/21/2024 3:24 PM [facility] BUN 27(H) 5 - 25 mg/dL LAB CHEMISTRY METHOD 07/21/2024 3:24 PM [facility] Creatinine 1.39(H) 0.70 - 1.30 mg/dL LAB CHEMISTRY METHOD 07/21/2024 3:24 PM [facility] eGFR 53(L) >=60 mL/min/1. 73m2 LAB CHEMISTRY METHOD 07/21/2024 3:24 PM [facility] Comment:Calculation based on the??Chronic Kidney Disease Epidemiology Collaboration (CKD-EPI) equation refit??without adjustment for race. BUN/Creatinine Ratio 19.4 LAB CHEMISTRY METHOD 07/21/2024 3:24 PM [facility] Calcium 9.1 8.5 - 10.5 mg/dL LAB CHEMISTRY METHOD 07/21/2024 3:24 PM [facility] AST (SGOT) 22 10 - 42 unit/L LAB CHEMISTRY METHOD 07/21/2024 3:24 PM [facility] ALT (SGPT) 34 10 - 60 unit/L LAB CHEMISTRY METHOD 07/21/2024 3:24 PM [facility] Alkaline Phosphatase 60 42 - 121 unit/L LAB CHEMISTRY METHOD 07/21/2024 3:24 PM [facility] Total Protein 7.9 6.0 - 8.0 g/dL LAB CHEMISTRY METHOD 07/21/2024 3:24 PM EDT [facility] Albumin 3.5 3.2 - 5.0 g/dL LAB CHEMISTRY METHOD 07/21/2024 3:24 PM EDT [facility] Total Bilirubin 0.4 0.0 - 1.4 mg/dL LAB CHEMISTRY METHOD 07/21/2024 3:24 PM EDT [facility] Blood Venous blood specimen / Unknown Venipuncture / Unknown 07/21/2024 10:52 AM EDT 07/21/2024 10:52 AM EDT us Parth DAWSON LAB BLOOD ORDERABLES Final Res ult [facility] [address] [place] [address], * Vascular US duplex carotid bilateral (05/18/2024 11:02 AM EST) Left CCA dist batista 13 cm/s [facility] Left CCA dist sys 52 cm/s [facility] LEFT COMMON CAROTID ARTERY MID D 10 cm/s [facility] LEFT COMMON CAROTID ARTERY MID S 47 cm/s CV [facility] LAB Left CCA prox batista 14 cm/s CV [facility] LAB Left CCA prox sys 60 cm/s [facility] LAB LEFT EXTERNAL CAROTID ARTERY D 9 cm/s CV [facility] LAB Left ECA sys 33 cm/s CV [facility] LAB Left ICA/CCA sys 1.50 no units CV [facility] LAB Left ICA dist batista 20 cm/s CV V[facility] LAB Left ICA dist sys 79 cm/s CV VAS LAB Left ICA mid batista 18 cm/s CV V[facility] LAB Left ICA mid sys 66 cm/s CV [facility] LAB Left ICA prox batista 13 cm/s CV VAS LAB Left ICA prox sys 46 cm/s CV [facility] LAB Left vertebral sys 70 cm/s CV [facility] LAB Right CCA dist batista 12 cm/s CV VAS LAB Right cca dist sys 77 cm/s CV [facility] LAB RIGHT COMMON CAROTID ARTERY MID D 13 cm/s CV [facility] LAB RIGHT COMMON CAROTID ARTERY MID S 92 cm/s CV VAS LAB Right CCA prox batista 15 cm/s CV VAS LAB Right CCA prox sys 95 cm/s CV [facility] LAB RIGHT EXTERNAL CAROTID ARTERY D 31 cm/s CV [facility] LAB Right eca sys 337 cm/s CV V[facility] LAB Right ICA/CCA sys 1.40 no units CV [facility] LAB Right ICA dist batista 18 cm/s CV VAS LAB Right ICA dist sys 104 cm/s CV V[facility] LAB Right ICA mid batista 23 cm/s CV VAS LAB Right ICA mid sys 109 cm/s CV V[facility] LAB Right ICA prox batista 21 cm/s CV [facility] LAB Right ICA prox sys 107 cm/s [facility] Right vertebral sys 25 cm/s [facility] Left Prox Subclavian PSV 97 cm/s [facility] Right Prox Subclavian PSV 221 cm/s [facility] Right arm BP 133 mmHg [facility] Left arm BP 141 mmHg [facility] Anatomical Region Laterality Modality Vascular, Abdomen Ultrasound Narrative 05/19/2024 1:10 PM EST ?Right proximal ICA: There is moderate plaque. ?Left proximal ICA: There is evidence of intimal thickening. RIGHT. 1. ??There is atherosclerotic plaque in the carotid system as noted above. 2. ??There is less than 50% stenosis in the internal carotid artery based on Doppler velocity. 3. ??The subclavian artery has normal Doppler flow pattern. 4. ??Vertebral artery has normal antegrade flow. LEFT. 1. ??There is intimal thickening but no significant atherosclerotic plaque in the carotid system as noted above. 2. ??There is no significant stenosis in the internal carotid artery based on Doppler velocity. ??Findings consistent status post CEA. 3. ??The subclavian artery has normal Doppler flow pattern. 4. ??Vertebral artery has normal antegrade flow. Prior Study Prior procedure(s): Left carotid endarterectomy over a decade ago. Right Carotid The CCA has no significant plaque. The proximal ICA has moderate plaque. The ECA has mild plaque. Rge right vertebral has an irregular antegrade waveform. Right JR=989/75 Vertebral flow is antegrade. Left Carotid There is evidence of intimal thick in the distal CCA. There is evidence of intimal thickening in the proximal ICA. The ECA is tortuous. Left JX=595/68 Vertebral flow is antegrade. Clinical Phlebotomist Details A lobo scale, color and doppler analysis ultrasound was performed. During the study longitudinal and transverse views were obtained. Pulsed wave doppler was performed. Sydni DAWSON CV VASCULAR PROCEDURES Final Result * Diabetes Foot Exam (01/14/2024) [facility] Diabetes: Annual Foot Exam abstracted Result [facility] Provider HEALTH MAINTENANCE Final Result * Depression Screening (11/12/2023) [facility] Depression Screening abstracted Result [facility] Provider HEALTH MAINTENANCE Final Result * Urine Albumin Creatinine Ratio (07/31/2021) [facility] Urine Albumin Creatinine Ratio abstracted Result [facility] Provider HEALTH MAINTENANCE Final Result * Abdominal Aortic Aneurysm Screen (07/10/2017) [facility] Abdominal Aortic Aneurysm (AAA) Screening abstracted Anatomical Region Laterality Modality Other Result [facility] Provider HEALTH MAINTENANCE Final Result * Hepatitis C Screening (03/13/2016) [facility] Hepatitis C Screening abstracted Result [facility] Provider HEALTH MAINTENANCE Final Result from Last 3 Months or Most Recently Relevant to Health Maintenance Insurance [employer] Advance Directives Documents on File Type Date Recorded Patient Swabber Expl anation Health Care Decision (hx) 05/29/2017 AD MAC DIRECTIVE Health Care Decision (hx) 05/29/2017 AD MAC DIRECTIVE Health Care Decision (hx) 05/29/2017 AD MAC DIRECTIVE Health Care Decision (hx) 05/29/2017 AD MAC DIRECTIVE Health Care Decision (hx) 05/29/2017 AD MAC DIRECTIVE Health Care Decision (hx) 05/29/2017 AD MAC DIRECTIVE Health Care Decision (hx) 05/29/2017 AD MAC DIRECTIVE Health Care Decision (hx) 05/29/2017 AD MAC DIRECTIVE Health Care Decision (hx) 05/29/2017 AD MAC DIRECTIVE Health Care Decision (hx) 05/29/2017 AD MAC DIRECTIVE Care Teams Supply Chain Director Relationship Specialty Start Date End Date Jerilyn Hyatt MD [address] [place] [id number] PCP - General Internal Medicine 11/02/13
[2024-08-10 09:52] LABS: MANUAL DIFF FLAG NO
[2024-08-10 10:01] LABS: Basophils Absolute Auto 0.1 X10*3/uL (0.0-0.2); Basophils Percent Auto 0.7 % (0-2); Eosinophils Absolute Auto 0.2 X10*3/uL (0.0-0.4); Eosinophils Percent Auto 2.8 % (0-4); Hematocrit 54.5 % (42.0-52.0); Hemoglobin 18.2 g/dl (14.0-18.0); Imm Gran Abs Auto 0.02 X10*3/uL (0.00-0.03); Imm Gran Pct Auto 0.3 % (0.0-0.4); Lymphocytes Absolute Auto 1.5 X10*3/uL (1.2-4.9); Lymphocytes Percent Auto 19.4 % (20-40); Mean Corpuscular HGB Conc 33.4 g/dl (31.0-36.0); Mean Corpuscular Hemoglobin 28.9 pg (27.0-33.0); Mean Corpuscular Volume 86.5 fL (80.0-98.0); Mean Platelet Volume 8.8 fL (9.4-12.4); Monocytes Percent Auto 13.4 % (2-11); Neutrophils Absolute Auto 4.8 x10*3/uL (2.0-8.3); Neutrophils Percent Auto 63.4 % (45-73); Platelet Count 258 X10*3/uL (160-400); Red Cell Distribution Width 15.9 % (11.0-16.0); White Blood Count 7.6 X10*3/uL (4.8-10.8)
[2024-08-10 10:30] LABS: Erythrocyte Sedimentation Rate 23 MM/HR (0-15)
[2024-08-10 11:03] LABS: Alanine Aminotransferase 21 U/L (0-40); Albumin Level 3.6 g/dL (3.5-5.0); Anion Gap 12 (12-20); Aspartate Amino Transferase 23 U/L (5-37); Bilirubin Total 0.4 mg/dL (0.0-1.0); Blood Urea Nitrogen 23 mg/dL (9-16); C Reactive Protein 2.37 mg/dL (< or = 0.50); Calcium 8.8 mg/dL (8.4-10.2); Carbon Dioxide 22 mmol/L (22-29); Chloride 110 mmol/L (96-108); Estimated Glomerular Filt Rate 56; Glucose Random 124 mg/dL (60-115); Sodium 140 mmol/L (135-145); Total Protein 7.7 g/dL (6.5-8.0)
[2024-08-10 11:25] LABS: Alkaline Phosphatase 51 U/L (39-117)
== END 2024-08-10 07:30 | disposition home or self-care (01) ==
LOC: HO.10HDL 07:29
PROVIDERS: Visit Provider Student in an Organized Health Care Education/Training Program
DX: M05.9 Rheumatoid arthritis with rheumatoid factor, unspecified (principal); Z79.899 Other long term (current) drug therapy
CPT/HCPCS: 36415; 80053; 85025; 85652; 86140

== ENCOUNTER 2024-08-11 07:35 | Outpatient (AMB) | payer MEDICARE, MEDICAID, SELFPAY ==
--- OUTSIDE RECORDS SUMMARY | 2024-08-11 07:37 | XMS_ITS | Clinical Summary ---
Author Organization [facility] Address [address] [place] [address] Care Team Providers Care College Counselor Name Role Phone Jerilyn Hyatt MD Primary Care Prov ider Allergies No known active allergies Medications Medication Sig Dispensed Refills Start Date End Date Status methotrexate 2.5 MG tablet Take by mouth 3 (three) times a week. 0 Active oxyCODONE-acetaminoph en (PERCOCET) 5-325 MG per tablet Take 1 tablet by mouth every 4 (four) hours as needed for pain. 0 Active gabapentin (NEURONTIN) 800 MG tablet Take 800 mg by mouth 3 (three) times a day. 0 Active folic acid (FOLVITE) tablet 1 mg Take 1 mg by mouth daily. 0 Active Tofacitinib Citrate 5 MG TABS Take by mouth. 0 Active lisinopril (PRINIVIL,ZESTRIL) tablet 5 mg Take 5 mg by mouth daily. 0 Active fenofibrate micronized (LOFIBRA) 134 MG capsule Take 134 mg by mouth every morning before breakfast. 0 Active clopidogrel (PLAVIX) 75 MG tablet Take 75 mg by mouth daily. 0 Active sildenafil (VIAGRA) 100 MG tablet Take 100 mg by mouth daily as needed for erectile dysfunction. 0 Active omeprazole (PriLOSEC) 20 MG capsule Take 20 mg by mouth daily. 0 Active triamcinolone (KENALOG) 0.1 % ointment Apply topically 2 (two) times a day. 0 Active mupirocin (BACTROBAN) 2 % ointment Apply topically 3 (three) times a day. 0 Active Meloxicam 15 MG TBDP Take by mouth. 0 Active aspirin 325 MG tablet Take 325 mg by mouth daily. 0 Active Active Problems No known active problems Social History Tobacco Use Types Packs/Day Years Used Date Smoking Tobacco: Former Smokeless Tobacco: Never Alcohol Use Standard Drinks/Week Comments Not Currently 0 (1 standard drink = 0.6 oz pur e alcohol) Sex and Gender Information Value Date Recorded Sex Assigned at Not on file Gender Identity Not on file Sexual Orientation Not on file Last Filed Vital Signs Vital Sign Reading Time Taken Comments Blood Pressure 165/92 07/29/2020 9:18 AM EDT Pulse 66 07/29/2020 9:18 AM EDT Temperature 37 ??C (98.6 ??F) 07/29/2020 9:18 AM EDT Respiratory Rate - - Oxygen Saturation 96% 07/29/2020 9:18 AM EDT Inhaled Oxygen Concentration - - Weight 96.2 kg (212 lb) 07/29/2020 9:18 AM EDT Height 182.9 cm (6') 07/29/2020 9:18 AM EDT Body Mass Index 28.75 07/29/2020 9:18 AM EDT Plan of Treatment Health Maintenance Due Date Last Done Comments Hepatitis C Screening 1949 Depression Screening 1961 Preventative Health Evaluation 06/22/1967 DTap / Tdap / Td (1 - Tdap) 1968 Colon Cancer Screening (Colonoscopy) 1994 Shingrix-Zoster Vaccine (1 o f 2) 06/22/1999 Fall Risk Assessment 2014 Pneumococcal Vaccine (2 of 2 - PPSV23 or PCV20) 02/25/2021 02/26/2020 COVID-19 Vaccine (4 - 2023-2 5 season) 2023 04/19/2021, 07/14/2020, 06/22/2020 Influenza Vaccine (#1) 2023 02/26/2020 RSV Adult > 60+ Yrs or (1 - 1-dose 75+ series) 2024 Hepatitis B Vaccines Aged Out No long er eligible based on patient's age to complete this topic RSV Ped < 20 months Aged Out No longe r eligible based on patient's age to complete this topic Care Teams College Counselor Relationship Specialty Start Date End Date Jerilyn Hyatt MD PCP - General Internal Medicine 07/11/20
--- OUTSIDE RECORDS SUMMARY | 2024-08-11 07:37 | XMS_ITS | Clinical Summary ---
Author Organization [facility] Address [address] [place] [address] Phone Care Team Providers Care Boot Lace Cutter Machine Name Role Phone Jerilyn Hyatt MD Primary [...] neuropathy, without long-term current use of insulin ([facility] V24, [facility] V28) 08/13/2023 Hyperlipidemia 02/15/2023 CAD (coronary artery disease) 02/12/2019 Carotid artery disease ([facility] V24) 02/12/2019 CKD (chronic kidney disease) stage 3, GFR 30-59 ml/min ([facility] V24, [facility] V28) 02/12/2019 Erectile dysfunction 02/12/2019 GERD (gastroesophageal reflux disease) 9 Osteoarthritis 02/12/2019 Overview (01/23/2024): Knees, Hands Relative polycythemia 02/12/2019 Overview (01/23/2024): 01/01 No further Hematology w/u needed Emphysema lung ([facility] V24, [facility] V28) 2017 Overview (01/23/2024): LDCT [facility] at [facility] Fatty liver 03/17/2018 Overview (01/23/2024): Incidental found on LDCT Osteopenia 03/17/2018 Overview (01/23/2024): Incidental found on LDCT Pulmonary nodules 03/17/2018 Overview (01/23/2024): LDCT, following with [facility] Carotid stenosis, asymptomatic, bilateral 2017 PAD (peripheral artery disease) ([facility] V24) Post herpetic neuralgia 07/10/2017 Overview (01/23/2024): Shingles 08/2018 Seropositive rheumatoid arth ritis of multiple joints ([facility] V24, [facility] V28) 03/28/2016 Overview (01/23/2024): ONSET 2007 Long-standing history of polyarticular joint pain and swelling with positive high titer rheumatoid factor and anti-CCP levels Methotrexate started 2015 Humira ([id number]) - Stopped due to infections Xeljanz 09/30 Kidney stones 08/11/2014 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) 12/09/2013 Overview (01/23/2024): expressive aphasia Essential hypertension 12/09/2013 Peripheral vascular disease ([facility] V24) 2013 Encounters Date Type Department Care Team Description 07/21/2024 10:50 AM EDT Lab Draw Station - [place] [address] [place] [address] Controlled type 2 diabetes mellitus with diabetic neuropathy, without long-term current use of insulin ([facility] V24, [facility] V28); Hyperlipidemia, unspecified hyperlipidemia type 07/21/2024 9:30 AM EDT Office Visit [address] [phone] Parth Burris PA Depression, unspecified depression type (Primary Dx); Essential hypertension; Hyperlipidemia, unspecified hyperlipidemia type; 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); Controlled type 2 diabetes mellitus with diabetic neuropathy, without long-term current use of insulin ([facility] V24, [facility] V28); Opiate analgesic contract exists; Seropositive rheumatoid arthritis of multiple joints ([facility] V24, [facility] V28) 07/01/[address] [phone] Jerilyn Barnard MD Referral 06/24/2024 1:30 PM EDT Office Visit Vascular Surgery - [place] [address] [place] [address] Sydni James PA Carotid stenosis, asymptomatic, bilateral (Primary Dx); History of left-sided carotid endarterectomy 05/18/2024 11:15 AM EST Ancillary Procedure [facility] [address] [place] [phone] Carotid stenosis, asymptomatic, bilateral; History of left-sided carotid endarterectomy from Last 3 Months Immunizations Name Administration Dates Next Due Influenza trivalent, 0.5mL ( Fluzone High-dose) 65yo and older 02/26/2020,04/10/2016 Influenza trivalent, with preservative (Fluzone; Afluria) 6mo and older 02/26/2020 [facility] SARS-CoV-2 COVID-19, mRNA, LNP-S, preservative free 04/19/2021 [facility] SARS-CoV-2 COVID-19, mRNA, LNP-S, preservative free 04/19/2021,07/14/2020,06/23/2020,2020 [...] Medical History Date Comments Peripheral vascular disease ([facility] V24) 12/09/2013 DX:Peripheral vascular disea se ([facility]) 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) 12/09/2013 DX:Aphasia as late effe ct of cerebrovascular accident (CVA); COMMENT: expressive aphasia Rheumatoid arthritis ([facility] V[facility], [facility] V28) 03/28/2016 DX:Rheumatoid arthritis ([facility] ); COMMENT: ONSET 2007 Long-standing history of polyarticular joint pain and swelling with positive high titer rheumatoid factor and anti-CCP levels Methotrexate started 2015 Humira ([id number]) - Stopped due to infections Xeljanz 09/30 CAD (coronary artery disease) 02/12/2019 DX :CAD (coronary artery disease) Post herpetic neuralgia 07/10/2017 DX:Post herpetic neuralgia; COMMENT: Shingles 08/2018 Carotid artery disease ([facility] V24) 02/12/2019 DX:Carotid artery disease ([facility]) Pulmonary nodules 03/17/2018 DX:Pulmonary n odules; COMMENT: LDCT, following with [facility] Erectile dysfunction 02/12/2019 DX:Erectile dysfunction GERD (gastroesophageal reflu x disease) 02/12/2019 DX:GERD (gastroesophageal re flux disease) CKD (chronic kidney disease) stage 3, GFR 30-59 ml/min ([facility] V24, [facility] V28) 02/12/2019 DX:CKD (chronic kidney disea se) stage 3, GFR 30-59 ml/min ([facility]) Osteoarthritis 02/12/2019 DX:Osteoarthriti s; COMMENT: Knees, Hands Relative polycythemia 02/12/2019 DX:Relativ e polycythemia; COMMENT: 01/01 No further Hematology w/u needed Carotid stenosis, asymptomat ic, bilateral 03/10/2018 DX:Carotid stenosis, asympto matic, bilateral Emphysema lung ([facility] V24, [facility] V28) 03/17/2018 DX:Emphysema lung (HCC); COM MENT: LDCT following at [facility] Fatty liver 03/17/2018 DX:Fatty liver; COMMENT: Incidental found on LDCT Hypertension 12/09/2013 DX:Hypertension Kidney stones 08/11/2014 DX:Kidney stones Osteopenia 03/17/2018 DX:Osteopenia; C OMMENT: Incidental found on LDCT PAD (peripheral artery disea se) ([facility] V24) 03/10/2018 DX:PAD (peripheral artery di sease) ([facility]) Family History Medical History Relation Name Comments [...] 9:45 AM EDT Office Visit Adult Medicine [facility] [address] [place] [phone] Jerilyn Hyatt MD [address] [place] [address] 11/06/2024 8:45 AM EDT Office Visit [facility] [place] [address] [place] [phone] Jerilyn Hyatt MD [address] [place] [address] 05/27/2025 8:30 AM EST Ancillary Procedure [facility] [address] [facility] [address] [place] [address] 06/28/2025 9:30 AM EDT Office Visit Vascular Surgery - [place] [address] [facility] [address] [place] [phone] Sydni James PA [address] [facility] [address] [place] [address] Health Maintenance Due Date Last Done Comments [...] neuropathy, without long-term current use of insulin ([facility] V24, [facility] V28) VAS US DUPLEX CAROTID BILATERAL Routine [...] LAB CHEMISTRY METHOD 07/21/2024 3:24 PM EDT [facility] Triglycerides 388(H) 0 - 150 mg/dL LAB CHEMISTRY METHOD 07/21/2024 3:24 PM EDT [facility] HDL 35(L) >=40 mg/dL LAB CHEMISTRY METHOD 07/21/2024 3:24 PM EDT [facility] LDL Calculated 109(H) 0 - 100 mg/dL LAB CHEMISTRY METHOD 07/21/2024 3:24 PM EDT [facility] VLDL Cholesterol Dany 77.6 mg/dL LAB CHEMISTRY METHOD 07/21/2024 3:24 PM EDT [facility] Non HDL Chol. (LDL+VLDL) 187(H) <145 mg/dL LAB CHEMISTRY METHOD 07/21/2024 3:24 PM EDT [facility] Chol/HDL Ratio 6.3(H) 0.0 - 4.4 LAB CHEMISTRY METHOD 07/21/2024 3:24 PM EDT [facility] Blood Venous blood specimen / Unknown Venipuncture / Unknown 07/21/2024 10:52 AM EDT 07/21/2024 10:52 AM EDT us Parth DAWSON LAB BLOOD ORDERABLES Final Res ult Performing Organization Address [facility]/ZIP Co de Phone Number [facility] [address] [place] [address], [place] [phone] * (ABNORMAL) Hemoglobin A1c (07/21/2024 10:52 AM EDT) Hemoglobin A1C 6.8(H) <6.5 % LAB CHEMISTRY METHOD 07/21/2024 9:17 PM EDT [facility] Mean Bld Glu Estim. 148 mg/dL LAB CHEMISTRY METHOD 07/21/2024 9:17 PM EDT [facility] Blood Venous blood specimen / Unknown Venipuncture / Unknown 07/21/2024 10:52 AM EDT 07/21/2024 10:52 AM EDT Parth DAWSON LAB BLOOD ORDERABLES Final Res ult [facility] [address] [place] [address], [place] [phone] * (ABNORMAL) Comprehensive metabolic panel (07/21/2024 10:52 AM EDT) Sodium 138 133 - 145 mmol/L LAB CHEMISTRY METHOD 07/21/2024 3:24 PM EDT [facility] Potassium 4.7 3.5 - 5.5 mmol/L LAB CHEMISTRY METHOD 07/21/2024 3:24 PM [facility] Chloride 107 96 - 110 mmol/L LAB CHEMISTRY METHOD 07/21/2024 3:24 PM [facility] CO2 26 21 - 32 mmol/L LAB CHEMISTRY METHOD 07/21/2024 3:24 PM [facility] Anion Gap 5 3 - 11 LAB CHEMISTRY METHOD 07/21/2024 3:24 PM [facility] Glucose 113(H) 70 - 100 mg/dL LAB CHEMISTRY METHOD 07/21/2024 3:24 PM [facility] BUN 27(H) 5 - 25 mg/dL LAB CHEMISTRY METHOD 07/21/2024 3:24 PM [facility] Creatinine 1.39(H) 0.70 - 1.30 mg/dL LAB CHEMISTRY METHOD 07/21/2024 3:24 PM [facility] eGFR 53(L) >=60 mL/min/1. 73m2 LAB CHEMISTRY METHOD 07/21/2024 3:24 PM [facility] Comment:Calculation based on the??Chronic Kidney Disease Epidemiology Collaboration (CKD-EPI) equation refit??without adjustment for race. BUN/Creatinine Ratio 19.4 LAB CHEMISTRY METHOD 07/21/2024 3:24 PM [facility] Calcium 9.1 8.5 - 10.5 mg/dL LAB CHEMISTRY METHOD 07/21/2024 3:24 PM [facility] AST (SGOT) 22 10 - 42 unit/L LAB CHEMISTRY METHOD 07/21/2024 3:24 PM [facility] ALT (SGPT) 34 10 - 60 unit/L LAB CHEMISTRY METHOD 07/21/2024 3:24 PM [facility] Alkaline Phosphatase 60 42 - 121 unit/L LAB CHEMISTRY METHOD 07/21/2024 3:24 PM [facility] Total Protein 7.9 6.0 - 8.0 g/dL LAB CHEMISTRY METHOD 07/21/2024 3:24 PM EDT [facility] Albumin 3.5 3.2 - 5.0 g/dL LAB CHEMISTRY METHOD 07/21/2024 3:24 PM EDT [facility] Total Bilirubin 0.4 0.0 - 1.4 mg/dL LAB CHEMISTRY METHOD 07/21/2024 3:24 PM EDT [facility] Blood Venous blood specimen / Unknown Venipuncture / Unknown 07/21/2024 10:52 AM EDT 07/21/2024 10:52 AM EDT us Parth DAWSON LAB BLOOD ORDERABLES Final Res ult [facility] [address] [place] [address], * Vascular US duplex carotid bilateral (05/18/2024 [...] vertebral has an irregular antegrade waveform. Right YL=052/75 Vertebral flow is antegrade. Left Carotid There is evidence of intimal thick in the distal CCA. There is evidence of intimal thickening in the proximal ICA. The ECA is tortuous. Left IB=968/68 Vertebral flow is antegrade. Hotel Lobby Concierge Details A lobo scale, color and doppler analysis ultrasound was performed. During the study longitudinal and transverse views were obtained. Pulsed wave doppler was performed. Sydni DAWSON CV VASCULAR PROCEDURES Final Result * Diabetes Foot Exam (01/14/2024) [facility] Diabetes: Annual Foot Exam abstracted Result [facility] Provider HEALTH MAINTENANCE Final Result * Depression Screening (11/12/2023) [facility] Depression Screening abstracted Result [facility] Provider HEALTH MAINTENANCE Final Result * Urine Albumin Creatinine Ratio (07/31/2021) [facility] Urine Albumin Creatinine Ratio abstracted Result [facility] Provider HEALTH MAINTENANCE Final Result * Abdominal Aortic Aneurysm Screen (07/10/2017) [facility] Abdominal Aortic Aneurysm (AAA) Screening abstracted Anatomical Region Laterality Modality Other Result [facility] Provider HEALTH MAINTENANCE Final Result * Hepatitis C Screening (03/13/2016) [facility] Hepatitis C Screening abstracted Result [facility] Provider HEALTH MAINTENANCE Final Result from Last 3 Months or Most Recently Relevant to Health Maintenance Insurance [employer] Advance Directives Documents on File Type Date Recorded 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
--- NOTE | 2024-08-11 07:39 | MHC.OFFVIS ---
Vital Signs 08/11/24 07:45 Height 6 ft Weight 213 lb 6.519 oz BMI 28.9 BP 134/70 Blood Pressure Location Lt brachial Position Left Lateral Pulse 66 Pulse Source Pulse Oximeter Pulse Oximetry (%) 90 L Oxygen Delivery Method Room Air Intake Visit Reasons: RA Intake Note: Patient presents for RA. Allergies No Known Allergies Allergy (Verified 08/11/24 07:43) Medication List - Last Reconciled 08/11/24 by Mary Lou Tran MD aspirin (Adult Low Dose Aspirin) 81 mg PO DAILY clopidogrel (Plavix) 75 mg PO DAILY fenofibrate micronized 134 mg PO DAILY folic acid 1 mg PO DAILY ibuprofen 800 mg PO DAILY PRN ketoconazole 2% topical lisinopril 5 mg PO DAILY methotrexate sodium 12.5 mg (5 x 2.5 mg) PO QWEEK omeprazole 20 mg PO DAILY oxycodone-acetaminophen 5-325 mg 1 tab PO DAILY PRN Xeljanz (tofacitinib) 5 mg PO DAILY NS HPI Comments Details: Patient is a 74-year-old male with hypertension complicated by coronary artery disease and CVA, new onset type 2 diabetes, GERD, CKD stage 3 and seropositive rheumatoid arthritis here today for follow up Interval History: Patient last seen 04/09/[address] Lubin. At that time he was following up for seropositive nodular deforming rheumatoid arthritis on methotrexate and Xeljanz and reported that he was doing quite well overall. Today, Patient states that he continues to do well No flares of his disease Has chronic shingles pain for which he takes oxycodone from his primary Has foot pain that makes walking barefoot difficult, has to wear socks and shoes Rheumatologic History: ONSET 2007 Long-standing history of polyarticular joint pain and swelling with positive high titer rheumatoid factor and anti-CCP levels Methotrexate started 2015 Humira ([id number]) - Stopped due to infections Xeljanz 09/30 - 2021 dosage reduced to just 5 mg daily due to some CKD Current Rheumatology Medication(s): Xeljanz 5 mg daily Methotrexate 12.5 mg weekly Folic acid 1 mg daily [facility] Medical History Rheumatoid nodule of elbow Long-term use of immunosuppressant medication Hypertension GERD (gastroesophageal reflux disease) CKD (chronic kidney disease) stage 3, GFR 30-59 ml/min Aphasia as late effect of cerebrovascular accident Seropositive rheumatoid arthritis Social History Household Members: Family Housing: House Are you a primary director career to a significant other at home: No Do you presently have visiting nurse or other home services: No Alcohol intake: never Patient Tobacco Use Status: Former Tobacco user Years Smoked: Quit 14 years ago e-Cigarette/Vaping Use: Never Used service: No Current occupational status: employed 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 Review of Systems Const Details: Review of Systems Constitutional: Denies fever, chills, weight loss ENT: Denies vision changes, eye pain or eye redness, dental caries, dry mouth GI: Denies nausea, vomiting, diarrhea, abdominal pain, change in BM Pulm: Denies SOB, PARSONS, hemoptysis, wheezing Cards: Denies chest pain, palpitations Skin: Denies Raynaud's, rash, nail changes, photosensitivity, MANAGER [employer]: Denies headaches, weakness, paresthesias, recurrent falls MSK: as per HPI All other systems reviewed and are unremarkable except noted above Physical Exam Vital Signs: Last Vital Signs Pulse 66 08/11/24 07:45 BP 134/70 08/11/24 07:45 Pulse Ox 90 L 08/11/24 07:45 Oxygen Delivery Method Room Air 08/11/24 07:45 BMI result Body Mass Index 28.9 Vital signs reviewed Physical Examination CONSTITUITIONAL Patient alert and cooperative. Well appearing and in no apparent painful distress HEENT Conjunctiva and sclera clear. ?Pupils equal round and reactive to light. ?No lymphadenopathy. ? CHEST/RESPIRATORY SYSTEM Normal respiratory effort and able to speak in complete sentences. ?Clear to auscultation bilaterally. ?No crackles, rales, rhonchi, wheezes heard. CARDIAC SYSTEM Regular rate and rhythm. ?S1 and S2 heard no murmurs. ?Radial pulses intact bilaterally MSK Hands: ?Bilateral ulnar deviation right worse than left with prominent rheumatoid nodules on the fingers. Synovial hypertrophy noted to the 2nd and 3rd MCPs bilaterally however no tenderness to palpation. Wrists: ?Decreased range of motion of the wrists bilaterally with no tenderness to palpation. Elbows: Full range of motion without pain. No tenderness, weakness, swelling, increased warmth or erythema. Large nodules on the extensor surface of the elbows bilaterally Shoulders: Full range of active range of motion without pain. No tenderness, weakness, swelling, increased warmth or erythema. Knees: ?Full range of motion. ?No tenderness, swelling, increased warmth or erythema.? Crepitations felt Ankles: Full range of motion. ?No tenderness, swelling, increased warmth or erythema.? Feet: ?Negative squeeze test. ?No tenderness to palpation or swelling of the MTPs. Tender points:?No tenderness to palpation of the bilateral trapezius, supraspinatus, greater trochanters, anterior costochondral junctions, bilateral gluteal areas, bilateral suboccipital muscle insertions SKIN Skin intact without rashes. Results Reviewed Results Reviewed: Laboratory Tests 04/09/24 08/10/24 10:40 07:31 WBC 7.6 RBC 6.30 H Hgb 18.2 H Hct 54.5 H Plt Count 258 ESR 13 23 H Sodium 140 Potassium 4.0 Chloride 110 H Carbon Dioxide 22 BUN 23 H Creatinine 1.26 Calcium 8.8 Total Bilirubin 0.4 AST 23 ALT 21 Alkaline Phosphatase 51 C-Reactive Protein 0.97 H 2.37 H Infectious serologies 10/30/23 08:52 Hepatitis A IgM Ab Nonreactive Hep Bs Antigen Negative Hep Bs Antibody NONREACTIVE Hep B Core Total Ab Nonreactive Hepatitis C Ab (EIA) Nonreactive TB Test (T-Spot) Com Negative Assessment & Plan Assessment & Plan (1) Seropositive rheumatoid arthritis: Comment: ONSET 2007 Long-standing history of polyarticular joint pain and swelling with positive high titer rheumatoid factor and anti-CCP levels Methotrexate started 2015 Humira ([id number]) - Stopped due to infections Xeljanz 09/30 added - 2021 dosage reduced to just 5 mg daily due to some CKD. In Code(s): M05.9 - Rheumatoid arthritis with rheumatoid factor, unspecified Category: Medical Plan: #Seropositive nodular RA Patient is a 74-year-old male with seropositive nodular rheumatoid arthritis here today for follow up. Currently in remission on Xeljanz and methotrexate. My concern was that he had an elevation in his CRP compared to his March blood results however patient denies any flares or worsening of his disease. We will continue to monitor his lab work as this does not seem to be correlating with his clinical response Plan - Xeljanx 5mg daily - Methotrexate 12.5mg weekly - Folic acid 1 mg daily - RTC 4 months - Labs before visit: CBC, CMP, ESR, CRP, hepatitis panel, T spot (2) Long-term current use of tofacitinib: Code(s): Z79.622 - intermediate teacher (current) use of Janus kinase inhibitor Plan: #Long-term Use of ROBERT inhibitor : Xeljanz Discussed with patient the benefits and risks of ROBERT inhibitors for the management of the rheumatic condition Benefits include reduce pain, maintenance of remission and reduction of flares Risks include thromboembolic events, skin cancer and nonmelanoma skin cancers, other forms of cancer, cardiovascular alcohol and mortality Advise patient that they are to hold the medication and for up to 1 week after a febrile illness or an open skin wound (3) Encounter for methotrexate monitoring: Code(s): Z51.81 - Encounter for therapeutic drug level monitoring; Z79.631 - half-way (current) use of antimetabolite agent Plan: #Long-term Current Use of Methotrexate Discussed with patient the benefits and risks of methotrexate for managing their rheumatic condition Benefits include reduced pain, reduced mortality, maintenance of remission and reduction of flares Risks include oral ulcers, photosensitivity, hepatotoxicity, hematologic toxicity, pneumonitis, flu-like symptoms (especially day after administration), nodulosis, lymphomas ? Limit alcohol and avoid Bactrim ? Monitoring: ?CBC, BMP, LFTs every 3-4 months and hepatitis serologies as needed Plan I spent 32 minutes reviewing the record and labs, taking a history, examining the patient, discussing the treatment plan, ordering diagnostic work up and documenting in the medical record Orders: Orders Comprehensive Met. Panel 4 Months 5.9 - Rheumatoid arthritis with rheumatoid factor, unspecified T Spot TB 4 Months M05. - Rheumatoid arthritis with rheumatoid factor, unspecified Complete Blood Count Auto Diff 4 Months M05. - Rheumatoid arthritis with rheumatoid factor, unspecified C Reactive Protein 4 Months M05.9 - Rheumatoid arthritis with rheumatoid factor, unspecified Erythrocyte Sedimentation Rate 4 Months M05.9 - Rheumatoid arthritis with rheumatoid factor, unspecified Hepatitis A,B,C Profile 4 Months M05.9 - Rheumatoid arthritis with rheumatoid factor, unspecified Medications: Changed From methotrexate sodium 12.5 mg (5 x 2.5 mg) PO QWEEK 60 tabs 1RF M05.9 - Rheumatoid arthritis with rheumatoid factor, unspecified To methotrexate sodium 12.5 mg (5 x 2.5 mg) PO QWEEK 90 days 65 tabs 1RF M05.9 - Rheumatoid arthritis with rheumatoid factor, unspecified Refilled folic acid 1 mg PO DAILY 90 tabs 1RF Xeljanz (tofacitinib) 5 mg PO DAILY 30 tabs 4RF NS M05.9 - Rheumatoid arthritis with rheumatoid factor, unspecified Coding Level of Care Code Est Pt Level 4 (11121) Complex EM visit Add On G2211 Diagnoses Seropositive rheumatoid arthritis M05.9 Long-term current use of tofacitinib Z79.622 Encounter for methotrexate monitoring Z51.81; Z79.631
[2024-08-11 07:45] VITALS: BP 134/70; PULSE 66; O2SAT 90; BMI 28.9
== END 2024-08-11 08:10 | disposition home or self-care (01) ==
LOC: HO.RHE 07:35
PROVIDERS: PCP Internal Medicine; Visit Provider Student in an Organized Health Care Education/Training Program
DX: M05.79 Rheumatoid arthritis with rheumatoid factor of multiple sites without organ or systems involvement (principal); Z79.622 Long term (current) use of Janus kinase inhibitor; Z51.81 Encounter for therapeutic drug level monitoring; Z79.631 Long term (current) use of antimetabolite agent
CPT/HCPCS: 99214; G2211

== ENCOUNTER → 2024-08-11 07:35 | Outpatient (BNVA) | payer MEDICARE, MEDICAID, SELFPAY | PROVIDERS: PCP Internal Medicine; Visit Provider Student in an Organized Health Care Education/Training Program | DX: M05.9 Rheumatoid arthritis with rheumatoid factor, unspecified (principal); Z79.622 Long term (current) use of Janus kinase inhibitor; Z51.81 Encounter for therapeutic drug level monitoring; Z79.631 Long term (current) use of antimetabolite agent | CPT/HCPCS: 99212 ==

== ENCOUNTER 2024-12-17 11:05 | Outpatient (REF) | payer MEDICARE, MEDICAID, SELFPAY ==
--- OUTSIDE RECORDS SUMMARY | 2024-12-17 12:41 | XMS_ITS | Patient Health Record ---
Author Organization [facility] Address [address] [place], [place] [id number] Support Name Relationship Address Phone Jagdish Tate Guarantor Unknown [phone] Allergies No Known Allergies Reason For Referral No Information Medications Medication SIG (Take, Route, Frequency, Duration) Notes Start Date End Date Status Aspirin 325 mg Activ e Fenofibrate oral 134mg *Pick strength-form from [employer] for eRX* Active Clopidogrel Bisulfate 75 MG Oral Active Omeprazole 20 MG Oral Act deo Methotrexate 2.5 mg/mL oral Active amlodipine 5 mg oral 1 time per day *Reorder from [employer] for eRx and Interaction Alerts* Active Xeljanz 5 mg oral Active Lisinopril 5 mg oral Acti ve Folic Acid 1 mg oral Acti ve Meloxicam *Pick strength-f orm from [employer] for eRX* Active Problems Problem Type SNOMED Code ICD Code Onset Dates Problem Status W/U Status Risk Notes Problem Herpes zoster without complication (412102743) Zoster without complications (B02.9) 08/29/19 Active confirmed Problem Hyperlipidemia (68927161) Hyperlipidemia, unspecified (E78.5) 08/29/19 Active confirmed Problem Essential hypertension (46414896) Essential (primary) hypertension (I10) 08/29/19 Active confirmed Problem Cerebral infarction (639523716) Cerebral infarction, unspecified (I63.9) 08/29/19 Active confirmed Problem Gastro-esophageal reflux disease without esophagitis (757168537) Gastro-esophagea l reflux disease without esophagitis (K21.9) 08/29/19 Active confirmed Problem Rheumatoid arthritis (87683518) Rheumatoid arthritis, unspecified (M06.9) 08/29/19 Active confirmed Plan Of Treatment No Information Insurance Providers Payer Name Payer Address Payer Phone Subscriber Number Group Number Insured Name Patient Relationship to Insured Coverage Start Date Coverage End Date Medicare Part B Fl [address] [id number] Jagdish Tate Self - patient is the insured 9
--- OUTSIDE RECORDS SUMMARY | 2024-12-17 12:41 | XMS_ITS ---
Author Name [facility] Organization Unknown Care Team Organization Name Specialty Phone Email Start Date End [facility] 12/02/2024
--- OUTSIDE RECORDS SUMMARY | 2024-12-17 12:41 | XMS_ITS | Clinical Summary ---
Author Organization [facility] Address [address] [place] [address] Care Team Providers Care Commercial Property Manager Name Role Phone Jerilyn Hyatt MD Primary [...] 65 07/29/2020 9:18 AM EDT Temperature 37 C (98.6 F) 07/29/2020 9:18 AM EDT Respiratory Rate - [...] 2 - PPSV23 or PCV20) 02/25/2021 02/26/2020 RSV Adult > 60+ Yrs or (1 - 1-dose 75+ series) 2024 COVID-19 Vaccine (4 - 2024-2 6 season) 2024 04/19/2021, 07/14/2020, 06/22/2020 Influenza Vaccine (#1) 2024 02/26/2020 Hepatitis B Vaccines Aged Out No long er eligible based on patient's age to complete this topic RSV Ped < 20 months Aged Out No longe r eligible based on patient's age to complete this topic Care Teams Commercial Property Manager Relationship Specialty Start Date End Date Jerilyn Hyatt MD PCP - General Internal Medicine 07/11/20
--- OUTSIDE RECORDS SUMMARY | 2024-12-17 12:42 | XMS_ITS | Clinical Summary ---
Author Organization 175 [facility] Address [address] [place] [address] Phone Care Team Providers Care Cut And Print Machine Operator Name Role Phone Jerilyn Hyatt MD Primary [...] 5 mg tablet Take by mouth. Active sildenafiL (VIAGRA) 100 mg tablet Take 1 tablet (100 mg total) by mouth if needed for erectile dysfunction. 30 tablet 04/20/19 25 Active citalopram (CeleXA) 10 mg tablet Take 1 tablet (10 mg total) by mouth 1 (one) time each day. 30 each 5 07/22/19 25 025 Active clopidogreL (PLAVIX) 75 mg tablet TAKE 1 TABLET BY MOUTH 1 TIME EACH DAY. 90 tablet 1 09/03/19 25 Active fenofibrate micronized (LOFIBRA) 134 mg capsule Take 1 capsule (134 mg total) by mouth 1 (one) time each day with breakfast. 90 capsule 1 09/10/19 25 Active amLODIPine (NORVASC) 5 mg tablet Take 1 tablet (5 mg total) by mouth 1 (one) time each day. 90 each 1 11/10/19 25 026 Active lisinopriL (PRINIVIL,ZEST RIL) 20 mg tablet Take 1 tablet (20 mg total) by mouth 1 (one) time each day. 90 each 1 11/25/19 25 026 Active omeprazole (PriLOSEC) [address] capsule TAKE 1 CAPSULE BY MOUTH 1 TIME EACH DAY. DO NOT CRUSH OR CHEW. 90 capsule 1 12/03/19 25 Active oxyCODONE-acet aminophen (PERCOCET) 5-325 mg per tabletIndicati ons:Postherpet ic neuralgia Take 2 tablets by mouth at bedtime. Max Daily Amount: 2 tablets 56 tablet 12/05/19 25 Active lisinopriL (PRINIVIL,ZEST RIL) 20 mg tablet Take 1 tablet (20 mg total) by mouth 1 (one) time each day. 30 each 5 04/20/19 25 025 Discontinued(Re order) omeprazole (PriLOSEC) [address] capsule TAKE 1 CAPSULE BY MOUTH 1 TIME EACH DAY. DO NOT CRUSH OR CHEW. 90 capsule 1 06/04/19 25 025 Discontinued oxyCODONE-acet aminophen (PERCOCET) 5-325 mg per tablet Take 2 tablets by mouth at bedtime. Max Daily Amount: 2 tablets 56 tablet 11/07/19 25 025 Discontinued(Re order) Active Problems Problem Noted Date Diagnosed Date Opiate analgesic contract exists 04/20/2024 History of herpes zoster 02/25/2024 Controlled type 2 diabetes m ellitus with diabetic neuropathy, without long-term current use of insulin ([facility] V24, [facility] V28) 08/13/2023 Hyperlipidemia 02/15/2023 CAD (coronary artery disease) 02/12/2019 Carotid artery disease ([facility] V24) 02/12/2019 CKD (chronic kidney disease) stage 3, GFR 30-59 ml/min ([facility] V24, [facility] V28) 02/12/2019 Erectile dysfunction 02/12/2019 GERD (gastroesophageal reflux disease) 9 Osteoarthritis 02/12/2019 Overview (01/23/2024): Knees, Hands Relative polycythemia 02/12/2019 Overview (01/23/2024): 01/01 No further Hematology w/u needed Emphysema lung ([facility] V24, [facility] V28) 2017 Overview (01/23/2024): LDCT following at [facility] Fatty liver 03/17/2018 Overview (01/23/2024): Incidental found on LDCT Osteopenia 03/17/2018 Overview (01/23/2024): Incidental found on LDCT Pulmonary nodules 03/17/2018 Overview (01/23/2024): [facility] Carotid stenosis, asymptomatic, bilateral 2017 PAD (peripheral artery disease) ([facility] V24) Postherpetic neuralgia 07/10/2017 Overview (01/23/2024): Shingles 08/2018 Seropositive rheumatoid arth ritis of multiple joints ([facility] V24, [facility] V28) 03/28/2016 Overview (01/23/2024): ONSET 2007 Long-standing history of polyarticular joint pain and swelling with positive high titer rheumatoid factor and anti-CCP levels Methotrexate started 2015 Humira ([id number]) - Stopped due to infections Xeljanz 09/30 Kidney stones 08/11/2014 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) 12/09/2013 Overview (01/23/2024): expressive aphasia Essential hypertension 12/09/2013 Peripheral vascular disease ([facility] V24) 2013 Resolved Problems Problem Noted Date Diagnosed Date Resolved Date Prediabetes 01/23/2024 08/31/2024 Encounters Date Type Department Care Team Description 11/09/2024 9:30 AM EDT Office Visit Adult [address] [id number] HayfrJerilyn Gross MD Essential hypertension (Primary Dx); Gastroesophageal reflux disease without esophagitis; Seropositive rheumatoid arthritis of multiple joints ([facility] V24, [facility] V28); 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); Controlled type 2 diabetes mellitus with diabetic neuropathy, without long-term current use of insulin ([facility] V24, [facility] V28); Postherpetic neuralgia 09/16/2024 [address]phone [place] [address] [place] [address] Jerilyn Barnard MD from Last 3 Months Immunizations Name Administration Dates Next Due Influenza trivalent, 0.5mL ( Fluzone High-dose) 65yo and older 02/26/2020,04/10/2016 Influenza trivalent, with preservative (Fluzone; Afluria) 6mo and older 02/26/2020 Moderna SARS-CoV-2 COVID-19, mRNA, LNP-S, preservative free 04/19/2021 Pfizer SARS-CoV-2 COVID-19, mRNA, LNP-S, preservative free 04/19/2021,07/14/2020,06/23/2020,2020 [...] Medical History Date Comments Peripheral vascular disease ([facility] V24) 12/09/2013 DX:Peripheral vascular disea se (HCC) 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) 12/09/2013 DX:Aphasia as late effe ct of cerebrovascular accident (CVA); COMMENT: expressive aphasia Rheumatoid arthritis ([facility] V24, [facility] V28) 03/28/2016 DX:Rheumatoid arthritis (HCC ); COMMENT: ONSET 2007 Long-standing history of polyarticular joint pain and swelling with positive high titer rheumatoid factor and anti-CCP levels Methotrexate started 2015 Humira ([id number]) - Stopped due to infections Xeljanz 09/30 CAD (coronary artery disease) 02/12/2019 DX :CAD (coronary artery disease) Post herpetic neuralgia 07/10/2017 DX:Post herpetic neuralgia; COMMENT: Shingles 08/2018 Carotid artery disease ([facility] V24) 02/12/2019 DX:Carotid artery disease ([facility]) Pulmonary nodules 03/17/2018 DX:Pulmonary n odules; COMMENT: LDCT, following with [facility] Erectile dysfunction 02/12/2019 DX:Erectile dysfunction GERD (gastroesophageal reflu x disease) 02/12/2019 DX:GERD (gastroesophageal re flux disease) CKD (chronic kidney disease) stage 3, GFR 30-59 ml/min ([facility] V24, [facility] V28) 02/12/2019 DX:CKD (chronic kidney disea se) stage 3, GFR 30-59 ml/min ([facility]) Osteoarthritis 02/12/2019 DX:Osteoarthriti s; COMMENT: Knees, Hands Relative polycythemia 02/12/2019 DX:Relativ e polycythemia; COMMENT: 01/01 No further Hematology w/u needed Carotid stenosis, asymptomat ic, bilateral 03/10/2018 DX:Carotid stenosis, asympto matic, bilateral Emphysema lung ([facility] V24, [facility] V28) 03/17/2018 DX:Emphysema lung ([facility]); COM MENT: LDCT following at [facility] Fatty liver 03/17/2018 DX:Fatty liver; COMMENT: Incidental found on LDCT Hypertension 12/09/2013 DX:Hypertension Kidney stones 08/11/2014 DX:Kidney stones Osteopenia 03/17/2018 DX:Osteopenia; C OMMENT: Incidental found on LDCT PAD (peripheral artery disea se) ([facility] V24) 03/10/2018 DX:PAD (peripheral artery di sease) ([facility]) Family History Medical History Relation Name [...] Sign Reading Time Taken Comments Blood Pressure 140/85 11/09/2024 9:37 AM EDT Pulse 68 11/09/2024 9:37 AM EDT Temperature 36.4 C (97.6 F) 11/09/2024 9:37 AM EDT Respiratory Rate - - Oxygen Saturation - - Inhaled Oxygen Concentration - - Weight 97.8 kg (215 lb 9.6 oz) 11/09/2024 9:37 A M EDT Height 182.9 cm (6') 07/21/2024 9:14 AM EDT Body Mass Index 29.24 07/21/2024 9:14 AM EDT Plan of Treatment Upcoming Encounters Date Type Department Care Team (Late st Contact Info) Description 02/15/2025 9:30 AM EST Office Visit Adult Medicine - [place] [address] [place] [phone] Jerilyn Hyatt MD [address] [place] [address] 05/27/2025 8:30 AM EST Ancillary Procedure [facility] [address] [place] [address] [place] [phone] 06/28/2025 9:30 AM EDT Office Visit Vascular Surgery - [place] [address] [place] [phone] Sydni James PA [address] [place] [address] Health Maintenance Due Date Last Done Comments Diabetes: Annual Retina Eye Exam 06/22/1959 Zoster Vaccines (1 of 2) 1968 Colorectal Cancer Screening: Colonoscopy 03/24/2022 Falls Risk Assessment 03/24/2022 Medicare Annual Wellness Visit 03/24/2022 Social Influencers of Health Screening 03/24/2022 Diabetes: Annual Urine Albumin-Creatinine Ratio (uACR) 11/08/2023 07/31/2021 COVID-19 Vaccine ( season) 2023 04/19/2021, 04/19/2021, 07/14/2020, Additional history exists Depression Screening 04/15/2024 11/12/2023 RSV Immunization Adult Patients (1 - 1-dose 75+ series) 2024 Influenza Vaccine (#1) 2024 , 02/26/2020, 04/10/2016 Diabetes: Annual Foot Exam 01/13/2025 [...] Procedure Name Priority Date/Time Associated Diagnosis Comments COMPREHENSIVE METABOLIC PANEL Routine 07/21/2024 10:52 AM EDT Hyperlipidemia, unspecified hyperlipidemia type HEMOGLOBIN A1C Routine 07/21/2024 10:52 AM EDT Controlled type 2 diabetes mellitus with diabetic neuropathy, without long-term current use of insulin ([facility] V24, [facility] V28) LIPID PANEL WITH REFLEX TO DIRECT LDL Routine 07/21/2024 10:52 AM EDT Hyperlipidemia, unspecified hyperlipidemia type DIABETES FOOT EXAM Routine 01/14/2024 DEPRESSION SCREENING [...] LAB CHEMISTRY METHOD 07/21/2024 3:24 PM EDT [facility] Triglycerides 388(H) 0 - 150 mg/dL LAB CHEMISTRY METHOD 07/21/2024 3:24 PM EDT [facility] HDL 35(L) >=40 mg/dL LAB CHEMISTRY METHOD 07/21/2024 3:24 PM EDT [facility] LDL Calculated 109(H) 0 - 100 mg/dL LAB CHEMISTRY METHOD 07/21/2024 3:24 PM EDT [facility] VLDL Cholesterol Dany 77.6 mg/dL LAB CHEMISTRY METHOD 07/21/2024 3:24 PM EDT [facility] Non HDL Chol. (LDL+VLDL) 187(H) <145 mg/dL LAB CHEMISTRY METHOD 07/21/2024 3:24 PM EDT [facility] Chol/HDL Ratio 6.3(H) 0.0 - 4.4 LAB CHEMISTRY METHOD 07/21/2024 3:24 PM EDT [facility] Blood Venous blood specimen / Unknown Venipuncture / Unknown 07/21/2024 10:52 AM EDT 07/21/2024 10:52 AM EDT us Parth DAWSON LAB BLOOD ORDERABLES Final Res ult [facility] [address] [place] [address], * (ABNORMAL) Hemoglobin A1c (07/21/2024 10:52 AM EDT) Hemoglobin A1C 6.8(H) <6.5 % LAB CHEMISTRY METHOD 07/21/2024 9:17 PM EDT [facility] Mean Bld Glu Estim. 148 mg/dL LAB CHEMISTRY METHOD 07/21/2024 9:17 PM EDT [facility] Blood Venous blood specimen / Unknown Venipuncture / Unknown 07/21/2024 10:52 AM EDT 07/21/2024 10:52 AM EDT us Parth DAWSON LAB BLOOD ORDERABLES Final Res ult [facility] [address] [place] [address], * (ABNORMAL) Comprehensive metabolic panel (07/21/2024 10:52 AM EDT) Sodium 138 133 - 145 mmol/L LAB CHE[facility]STR[facility] Potassium 4.7 3.5 - 5.5 mmol/L LAB CHEMISTRY METHOD 07/21/2024 3:[address] [facility] Chloride 107 96 - 110 mmol/L LAB CHEMISTRY METHOD 07/21/2024 3:[address] [facility] CO2 26 21 - 32 mmol/L LAB CHEMISTRY METHOD 07/21/2024 3:[address] [facility] Anion Gap 5 3 - 11 LAB CHEMISTRY METHOD 07/21/2024 3:[address] [facility] Glucose 113(H) 70 - 100 mg/dL LAB CHEMISTRY METHOD 07/21/2024 3:[address] [facility] BUN 27(H) 5 - 25 mg/dL LAB CHEMISTRY METHOD 07/21/2024 3:[address] [facility] Creatinine 1.39(H) 0.70 - 1.30 mg/dL LAB CHEMISTRY METHOD 07/21/2024 3:[address] [facility] eGFR 53(L) >=60 mL/min/1. 73m2 LAB CHEMISTRY METHOD 07/21/2024 3:[address] [facility] Comment:Calculation based on the Chronic Kidney Disease Epidemiology Collaboration (CKD-EPI) equation refit without adjustment for race. BUN/Creatinine Ratio 19.4 LAB CHEMISTRY METHOD 07/21/2024 3:[address] [facility] Calcium 9.1 8.5 - 10.5 mg/dL LAB CHEMISTRY METHOD 07/21/2024 3:24 PM EDT [facility] AST (SGOT) 22 10 - 42 unit/L LAB CHEMISTRY METHOD 07/21/2024 3:24 PM EDT [facility] ALT (SGPT) 34 10 - 60 unit/L LAB CHEMISTRY METHOD 07/21/2024 3:24 PM EDT [facility] Alkaline Phosphatase 60 42 - 121 unit/L LAB CHEMISTRY METHOD 07/21/2024 3:24 PM EDT [facility] Total Protein 7.9 6.0 - 8.0 g/dL LAB CHEMISTRY METHOD 07/21/2024 3:24 PM EDT [facility] Albumin 3.5 3.2 - 5.0 g/dL LAB CHEMISTRY METHOD 07/21/2024 3:24 PM EDT [facility] Total Bilirubin 0.4 0.0 - 1.4 mg/dL LAB CHEMISTRY METHOD 07/21/2024 3:24 PM EDT [facility] Blood Venous blood specimen / Unknown Venipuncture / Unknown 07/21/2024 10:52 AM EDT 07/21/2024 10:52 AM EDT Parth DAWSON LAB BLOOD ORDERABLES Final Res ult [facility] [address] [place] [address], * Diabetes Foot Exam (01/14/2024) Pathologist [facility] Diabetes: Annual Foot Exam abstracted Historical Provider HEALTH MAINTENANCE Final Result * Depression Screening (11/12/2023) [facility] Depression Screening abstracted [facility] Provider HEALTH MAINTENANCE Final Result * Urine Albumin Creatinine Ratio (07/31/2021) Pathologist [facility] Urine Albumin Creatinine Ratio abstracted [facility] Provider HEALTH MAINTENANCE Final Result * Abdominal Aortic Aneurysm Screen (07/10/2017) Abdominal Aortic Aneurysm (AAA) Screening abstracted Anatomical Region Laterality Modality Other Historical Provider HEALTH MAINTENANCE Final Result * Hepatitis C Screening (03/13/2016) Hepatitis C Screening abstracted us Historical Provider HEALTH MAINTENANCE Final Result from Last 3 Months or Most Recently Relevant to Health Maintenance Insurance [employer] Member Subscriber Plan / Payer (Ef fective 2023-Present) Name:YONAS SAHA Relation to Subscriber:Self Name:Yonas Saha Payer ID:[id number] Group ID:[id number] Type:Not on file Address: [address] [id number] MEDICAID - [place] Advance Directives Documents on File Type Date Recorded Patient Candlemaker Expl anation Health Care Decision (hx) 05/29/2017 [...] (hx) 05/29/2017 AD MAC DIRECTIVE Care Teams Cut And Print Machine Operator Relationship Specialty Start Date End Date Jerilyn Hyatt MD [address] [place] [id number] PCP - General Internal Medicine 11/02/13
[2024-12-17 13:23] LABS: MANUAL DIFF FLAG NO
[2024-12-17 13:33] LABS: Hematocrit 54.4 % (42.0-52.0); Hemoglobin 17.6 g/dl (14.0-18.0); Imm Gran Abs Auto 0.10 X10*3/uL (0.00-0.03); Imm Gran Pct Auto 1.3 % (0.0-0.4); Lymphocytes Absolute Auto 2.1 X10*3/uL (1.2-4.9); Mean Corpuscular HGB Conc 32.4 g/dl (31.0-36.0); Mean Corpuscular Hemoglobin 28.3 pg (27.0-33.0); Mean Corpuscular Volume 87.5 fL (80.0-98.0); NRBC Abs Auto 0.000 X10*3/uL (0.0-0.012); NRBC Pct Auto 0.0 /100WBC (0.0-0.2); Platelet Count 263 X10*3/uL (160-400); Red Blood Count 6.22 X10*6/uL (4.60-5.80); White Blood Count 7.9 X10*3/uL (4.8-10.8)
[2024-12-17 13:44] LABS: Alanine Aminotransferase 24 U/L (0-40); Albumin Level 3.8 g/dL (3.5-5.0); Alkaline Phosphatase 49 U/L (39-117); Anion Gap 15 (12-20); Aspartate Amino Transferase 29 U/L (5-37); Blood Urea Nitrogen 27 mg/dL (9-16); Calcium 9.2 mg/dL (8.4-10.2); Carbon Dioxide 23 mmol/L (22-29); Chloride 106 mmol/L (96-108); Estimated Glomerular Filt Rate 44; Potassium 4.6 mmol/L (3.3-5.1); Sodium 139 mmol/L (135-145); Total Protein 7.8 g/dL (6.5-8.0)
[2024-12-18 04:22] LABS: HBS Num1 0.22 mIU/mL (0-7.99); HBc Num1 0.22 S/CO (0.00-0.79); HBsAGNum1 0.43 S/CO (0.00-0.99); Hepatitis A Antibody IgM 0.21 Index (0-0.79); Hepatitis B Surface Antigen Negative (Negative); ~HepC Num1 0.09 S/CO (0.00-0.79); ~Hepatitis A Antibody IgM Nonreactive (Nonreactive); ~Hepatitis B Surface Antibody NONREACTIVE (Nonreactive); ~Hepatitis C Antibody Nonreactive (Nonreactive)
[2024-12-20 08:08] LABS: TS Negative Control Passed; TS Panel A 1; TS Panel B 0; TS Positive Control Passed; TSpotTB Negative (Negative)
== END 2024-12-17 11:06 | disposition home or self-care (01) ==
LOC: HO.HMGCLDS 11:05
PROVIDERS: PCP Internal Medicine; Visit Provider Student in an Organized Health Care Education/Training Program
DX: M05.9 Rheumatoid arthritis with rheumatoid factor, unspecified (principal); Z01.84 Encounter for antibody response examination; Z11.1 Encounter for screening for respiratory tuberculosis
CPT/HCPCS: 36415; 80053; 85025; 85652; 86140; 86481; 86704; 86706; 86709; 86803; 87340

== ENCOUNTER 2024-12-23 08:51 | Outpatient (AMB) | payer MEDICARE, MEDICAID, SELFPAY ==
--- NOTE | 2024-12-23 09:07 | A.OFFVIS_ITS ---
Vital Signs 12/23/24 09:12 Height 6 ft Weight 214 lb 11.684 oz BMI 29.1 BP 140/80 H Blood Pressure Location Lt brachial Position Sitting Pulse 65 Pulse Source Pulse Oximeter Pulse Oximetry (%) 98 Oxygen Delivery Method Room Air Intake Visit Reasons: f/u RA Intake Note: Patient presents for RA follow up. Allergies No Known Allergies Allergy (Verified 12/23/24 09:12) HPI Comments Details: Patient is a 74-year-old male with hypertension complicated by coronary artery d isease and CVA, new onset type 2 diabetes, GERD, CKD stage 3 and seropositive rheumatoid arthritis here today for follow up Interval History: Patient last seen 08/11/24 with me - On Xeljanz 5mg daily, methotrexate 12.5mg weekly, folic acid 1mg - No flares - Has chronic shingles pain for which he takes oxycodone from his primary - Has foot pain that makes walking barefoot difficult, has to wear socks and shoes Today, - On Xeljanz 5mg daily, methotrexate 12.5mg weekly, folic acid 1mg - No flares - Has chronic shingles pain for which he takes oxycodone from his primary - Has foot pain that makes walking barefoot difficult, has to wear socks and shoes - Planning to go to [place] to spend time with his son, grandsons, daughter in law for a roast Rheumatologic History: ONSET 2007 Long-standing history of polyarticular joint pain and swelling with positive high titer rheumatoid factor and anti-CCP levels Methotrexate started 2015 Humira ([id number]) - Stopped due to infections Xeljanz 09/30 added - 2021 dosage reduced to just 5 mg daily due to some CKD Current Rheumatology Medication(s): Xeljanz 5 mg daily Methotrexate 12.5 mg weekly Folic acid 1 mg daily PENDING SALE TO [facility] Medical History Rheumatoid nodule of elbow Long-term use of immunosuppressant medication Hypertension GERD (gastroesophageal reflux disease) CKD (chronic kidney disease) stage 3, GFR 30-59 ml/min Aphasia as late effect of cerebrovascular accident Seropositive rheumatoid arthritis Social History Household Members: Family Housing: House Are you a primary rn wound care to a significant other at home: No Do you presently have visiting nurse or other home services: No Alcohol intake: never Patient Tobacco Use Status: Former Tobacco user Years Smoked: Quit 14 years ago e-Cigarette/Vaping Use: Never Used service: No Current occupational status: employed 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 Review of Systems Const Details: Review of Systems Constitutional: Denies fever, chills, weight loss ENT: Denies vision changes, eye pain or eye redness, dental caries, dry mouth GI: Denies nausea, vomiting, diarrhea, abdominal pain, change in BM Pulm: Denies SOB, PARSONS, hemoptysis, wheezing Cards: Denies chest pain, palpitations Skin: Denies Raynaud's, rash, nail changes, photosensitivity, [employer]NER: Denies headaches, weakness, paresthesias, recurrent falls MSK: as per HPI All other systems reviewed and are unremarkable except noted above Physical Exam Exam Exam: Vital signs reviewed Physical Examination CONSTITUITIONAL Patient alert and cooperative. Well appearing and in no apparent painful distress MSK Hands * Right Hand: Able to make a fist. No swelling or tenderness to palpation of the MCPs, PIPs or DIPs. * Left Hand: Able to make a fist. No swelling or tenderness to palpation of the MCPs, PIPs or DIPs. * Bilateral ulnar deviation right worse than left with prominent rheumatoid nodules on the fingers. Synovial hypertrophy noted to the 2nd and 3rd MCPs bilaterally however no tenderness to palpation. * Nodules noted throughout hands Wrists * Right Wrist: No swelling or TTP * Left Wrist: No swelling or TTP * Decreased range of motion of the wrists bilaterally with no tenderness to palpation. Elbows * Right Elbow: Full ROM. No swelling or TTP. No TTP of the medial epicondyle. No TTP of the lateral epicondyle * Left Elbow: Full ROM. No swelling or TTP. No TTP of the medial epicondyle. No TTP of the lateral epicondyle * Large nodules on the extensor surface of the elbows bilaterally Shoulders * Right shoulder: No swelling noted. No TTP of the AC joint. No TTP of the subacromial bursa. No TTP of the posterior shoulder * Left shoulder: No swelling noted. No TTP of the AC joint. No TTP of the subacromial bursa. No TTP of the posterior shoulder Knees * Right knee: Full ROM. No swelling noted. No TTP of the knee joint line. No TTP of pes anserine bursa * Left knee: Full ROM. No swelling noted. No TTP of the knee joint line. No TTP of pes anserine bursa. * Crepitations felt bilaterally Ankles * Right ankle: Good ankle dorsiflexion and plantar flexion. No swelling. No TTP of the ankle joint * Left ankle: Good ankle dorsiflexion and plantar flexion. No swelling. No TTP of the ankle joint Feet * Right foot: Negative squeeze test * Left foot: Negative squeeze test Tender points? * No tenderness to palpation of the bilateral trapezius, supraspinatus, anterior costochondral junctions, bilateral suboccipital muscle insertions SKIN No rashes Vital Signs: Last Vital Signs Pulse 65 12/23/24 09:12 BP 140/80 H 12/23/24 09:12 Pulse Ox 98 12/23/24 09:12 Oxygen Delivery Method Room Air 12/23/24 09:12 BMI result Body Mass Index 29.1 Results Reviewed Results Reviewed: Laboratory Tests 08/10/24 12/17/24 07:31 11:30 WBC 7.9 RBC 6.22 H Hgb 17.6 Hct 54.4 H Plt Count 263 ESR 16 H Sodium 139 Potassium 4.6 Chloride 106 Carbon Dioxide 23 BUN 27 H Creatinine 1.54 H AST 29 ALT 24 Alkaline Phosphatase 49 C-Reactive Protein 2.37 H 1.30 H Laboratory Tests 12/17/24 11:30 Hepatitis A IgM Ab Nonreactive Hep Bs Antigen Negative Hep Bs Antibody NONREACTIVE Hep B Core Total Ab Nonreactive Hepatitis C Ab (EIA) Nonreactive TB Test (T-Spot) Com Negative Assessment & Plan Assessment & Plan (1) Seropositive rheumatoid arthritis: Comment: ONSET 2007 Long-standing history of polyarticular joint pain and swelling with positive high titer rheumatoid factor and anti-CCP levels Methotrexate started 2015 Humira ([id number]) - Stopped due to infections Xeljanz 09/30 - 2021 dosage reduced to just 5 mg daily due to some CKD. In Code(s): M05.9 - Rheumatoid arthritis with rheumatoid factor, unspecified Category: Medical Plan: #Seropositive nodular RA Patient is a 74-year-old male with seropositive nodular rheumatoid arthritis here today for follow up. Currently in remission on Xeljanz and methotrexate. Continues to have elevated ESR and CRP, though they have improved slightly since the last visit. He is clinically in remission Plan - Xeljanx 5mg daily - Methotrexate 12.5mg weekly - Folic acid 1 mg daily - RTC 6 months - Labs before visit: CBC, CMP, ESR, CRP (2) Long-term current use of tofacitinib: Code(s): Z79.622 - profiling machine set up operator tool (current) use of Janus kinase inhibitor Plan: #Long-term Use of ROBERT inhibitor : Xeljanz Discussed with patient the benefits and risks of ROBERT inhibitors for the management of the rheumatic condition Benefits include reduce pain, maintenance of remission and reduction of flares Risks include thromboembolic events, skin cancer and nonmelanoma skin cancers, other forms of cancer, cardiovascular alcohol and mortality Advise patient that they are to hold the medication and for up to 1 week after a febrile illness or an open skin wound (3) Encounter for methotrexate monitoring: Code(s): Z51.81 - Encounter for therapeutic drug level monitoring; Z79.631 - profiling machine set up operator tool (current) use of antimetabolite agent Plan: #Long-term Current Use of Methotrexate Discussed with patient the benefits and risks of methotrexate for managing their rheumatic condition Benefits include reduced pain, reduced mortality, maintenance of remission and reduction of flares Risks include oral ulcers, photosensitivity, hepatotoxicity, hematologic toxicity, pneumonitis, flu-like symptoms (especially day after administration), nodulosis, lymphomas ? Limit alcohol and avoid Bactrim ? Monitoring: ?CBC, BMP, LFTs every 3-4 months and hepatitis serologies as needed Plan I spent 30 minutes reviewing the record and labs, taking a history, examining the patient, discussing the treatment plan, ordering diagnostic work up and documenting in the medical record Coding Level of Care Code Est Pt Level 4 (71848) Complex EM visit Add On G2211 Diagnoses Seropositive rheumatoid arthritis M05.9 Long-term current use of tofacitinib Z79.622 Encounter for methotrexate monitoring Z51.81; Z79.631
[2024-12-23 09:12] VITALS: BP 140/80; PULSE 65; O2SAT 98; BMI 29.1
--- OUTSIDE RECORDS SUMMARY | 2024-12-23 10:23 | XMS_ITS | Clinical Summary ---
Author Organization [address] [facility] Address [address] [place] [address] Phone Care Team Providers Care Gristmill Operator Name Role Phone Jerilyn Hyatt MD [...] 2 tablets 56 tablet 12/05/19 25 Active omeprazole (PriLOSEC) [address] [...] zoster 02/25/2024 Controlled type 2 diabetes m jaquelineitus with diabetic neuropathy, without long-term current use of insulin [place] [place] [facility] V28) 08/13/2023 Hyperlipidemia 02/15/2023 CAD (coronary artery disease) 02/12/2019 Carotid artery disease ([facility] [place]) 02/12/2019 CKD (chronic kidney disease) stage 3, GFR 30-59 ml/min ([facility] [place], [facility] V28) 02/12/2019 Erectile dysfunction 02/12/2019 GERD (gastroesophageal reflux disease) 9 Osteoarthritis 02/12/2019 Overview (01/23/2024): Knees, Hands Relative polycythemia 02/12/2019 Overview (01/23/2024): 01/01 No further Hematology w/u needed Emphysema lung ([facility] [place]24, [facility] V28) 2017 Overview (01/23/2024): LDCT [facility] at [facility] Fatty liver 03/17/2018 Overview (01/23/2024): Incidental found on LDCT Osteopenia 03/17/2018 Overview (01/23/2024): Incidental found on LDCT Pulmonary nodules 03/17/2018 Overview (01/23/2024): LDCT, following with [facility] Carotid stenosis, asymptomatic, bilateral 2017 PAD (peripheral artery disease) ([facility] V24) Postherpetic neuralgia 07/10/2017 Overview (01/23/2024): Shingles 08/2018 Seropositive rheumatoid arth ritis of multiple joints ([facility] V24, [facility] V28) 03/28/2016 Overview (01/23/2024): ONSET 2007 Long-standing history of polyarticular joint pain and swelling with positive high titer rheumatoid factor and anti-CCP levels Methotrexate started 2015 Humira ([id number]) - Stopped due to infections Xeljanz 09/30 Kidney stones 08/11/2014 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) 12/09/2013 Overview (01/23/2024): expressive aphasia Essential hypertension 12/09/2013 Peripheral vascular disease ([facility] V24) 2013 Resolved Problems Problem Noted Date Diagnosed Date Resolved Date Prediabetes 01/23/2024 08/31/2024 Encounters Date Type Department Care Team Description 11/09/2024 9:30 AM EDT Office Visit [address] [id number] Jerilyn Barnard MD Essential hypertension (Primary Dx); Gastroesophageal reflux disease without esophagitis; Seropositive rheumatoid arthritis of multiple joints ([facility] V24, [facility] V28); 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); Controlled type 2 diabetes mellitus with diabetic neuropathy, without long-term current use of insulin ([facility] V24, [facility] V28); Postherpetic neuralgia from Last 3 Months Immunizations Name Administration [...] Medical History Date Comments Peripheral vascular disease ([facility] V24) 12/09/2013 DX:Peripheral vascular disea se ([facility]) 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) 12/09/2013 DX:Aphasia as late effe ct of cerebrovascular accident (CVA); COMMENT: expressive aphasia Rheumatoid arthritis ([facility] V24, [facility] V28) 03/28/2016 DX:Rheumatoid arthritis ([facility] ); COMMENT: ONSET 2007 Long-standing history of polyarticular joint pain and swelling with positive high titer rheumatoid factor and anti-CCP levels Methotrexate started 2015 Humira ([id number]) - Stopped due to infections Xeljanz 09/30 CAD (coronary artery disease) 02/12/2019 DX :CAD (coronary artery disease) Post herpetic neuralgia 07/10/2017 DX:Post herpetic neuralgia; COMMENT: Shingles 08/2018 Carotid artery disease ([facility] V24) 02/12/2019 DX:Carotid artery disease (HCC) Pulmonary nodules 03/17/2018 DX:Pulmonary n odules; COMMENT[facility] Erectile dysfunction 02/12/2019 DX:Erectile dysfunction GERD (gastroesophageal reflu x disease) 02/12/2019 DX:GERD (gastroesophageal re flux disease) CKD (chronic kidney disease) stage 3, GFR 30-59 ml/min ([facility] V24, [facility] V28) 02/12/2019 DX:CKD (chronic kidney disea se) stage 3, GFR 30-59 ml/min ([facility]) Osteoarthritis 02/12/2019 DX:Osteoarthriti s; COMMENT: Knees, Hands Relative polycythemia 02/12/2019 DX:Relativ e polycythemia; COMMENT: 01/01 No further Hematology w/u needed Carotid stenosis, asymptomat ic, bilateral 03/10/2018 DX:Carotid stenosis, asympto matic, bilateral Emphysema lung ([facility] [place], [facility] V28) 03/17/2018 DX:Emphysema lung (HCC); COM MENT: LDCT following at [facility] Fatty liver 03/17/2018 DX:Fatty liver; COMMENT: Incidental found on LDCT Hypertension 12/09/2013 DX:Hypertension Kidney stones 08/11/2014 DX:Kidney stones Osteopenia 03/17/2018 DX:Osteopenia; C OMMENT: Incidental found on LDCT PAD (peripheral artery disea se) ([facility] V24) 03/10/2018 DX:PAD (peripheral artery di sease) ([facility]) Family History Medical History Relation Name Comments [...] AM EST Office Visit Adult Medicine - [place] [address] [place] [phone] Jerilyn Hyatt MD [address] [place] [address] 05/27/2025 8:30 AM EST Ancillary Procedure [facility] [address] [facility] [address] [place] [phone] 06/28/2025 9:30 AM EDT Office Visit Vascular Surgery - [place] [address] [facility] [address] [place] [phone] Sydni James PA [address] [place] [phone] Health Maintenance Due Date Last Done Comments Diabetes: Annual Retina Eye Exam 06/22/1959 Zoster Vaccines (1 of 2) 1968 Colorectal Cancer Screening: Colonoscopy 03/24/2022 Falls Risk Assessment 03/24/2022 Medicare Annual Wellness Visit 03/24/2022 Social Influencers of Health Screening 03/24/2022 Diabetes: Annual Urine Albumin-Creatinine Ratio (uACR) 11/08/2023 07/31/2021 Depression Screening 04/15/2024 11/12/2023 RSV Immunization Adult Patients (1 - 1-dose 75+ series) 2024 COVID-19 Vaccine (6 - season) 2024 04/19/2021, 04/19/2021, 07/14/2020, Additional history exists Influenza Vaccine (#1) 2024 , 02/26/2020, 04/10/2016 [...] Procedure Name Priority Date/Time Associated Diagnosis Comments EXTERNAL CLINICAL LAB 12/18/2024 COMPREHENSIVE METABOLIC PANEL Routine 07/21/2024 10:52 AM EDT Hyperlipidemia, unspecified hyperlipidemia type HEMOGLOBIN A1C Routine 07/21/2024 10:52 AM EDT Controlled type 2 diabetes mellitus with diabetic neuropathy, without long-term current use of insulin ([facility] V24, [facility] V28) LIPID PANEL WITH REFLEX TO DIRECT LDL Routine 07/21/2024 10:52 AM EDT Hyperlipidemia, unspecified hyperlipidemia type DIABETES FOOT EXAM Routine 01/14/2024 DEPRESSION SCREENING Routine 11/12/2023 URINE ALBUMIN CREATININE RATIO Routine 07/31/2021 ABDOMINAL AORTIC ANEURYSM SCRREN Routine 07/10/2017 HEPATITIS C SCREENING Routine 03/13/2016 from Last 3 Months or Most Recently Relevant to Health Maintenance Results * External clinical lab (12/18/2024) Provider [place] LAB BLOOD ORDERABLES Fin al Result * (ABNORMAL) Lipid panel with reflex to direct LDL (07/21/2024 10:52 AM EDT) Cholesterol 222(H) 0 - 200 mg/dL LAB CHEMISTRY METHOD 07/21/2024 3:24 PM EDT [facility] Triglycerides 388(H) 0 - 150 mg/dL LAB CHEMISTRY METHOD 07/21/2024 3:24 PM EDT [facility] HDL 35(L) >=40 mg/dL LAB CHEMISTRY METHOD 07/21/2024 3:24 PM EDT [facility] LDL Calculated 109(H) 0 - 100 mg/dL LAB CHEMISTRY METHOD 07/21/2024 3:24 PM EDT [facility] VLDL Cholesterol Dany 77.6 mg/dL LAB CHEMISTRY METHOD 07/21/2024 3:24 PM EDT [facility] Non HDL Chol. (LDL+VLDL) 187(H) <145 mg/dL LAB CHEMISTRY METHOD 07/21/2024 3:24 PM EDT [facility] Chol/HDL Ratio 6.3(H) 0.0 - 4.4 LAB CHEMISTRY METHOD 07/21/2024 3:24 PM EDT [facility] Blood Venous blood specimen / Unknown Venipuncture / Unknown 07/21/2024 10:52 AM EDT 07/21/2024 10:52 AM EDT us Parth DAWSON LAB BLOOD ORDERABLES Final Res ult [facility] [address] [place] [address], * (ABNORMAL) Hemoglobin A1c (07/21/2024 10:52 AM EDT) Hemoglobin A1C 6.8(H) <6.5 % LAB CHEMISTRY METHOD 07/21/2024 9:17 PM EDT [facility] Mean Bld Glu Estim. 148 mg/dL LAB CHEMISTRY METHOD 07/21/2024 9:17 PM EDT [facility] Blood Venous blood specimen / Unknown Venipuncture / Unknown 07/21/2024 10:52 AM EDT 07/21/2024 10:52 AM EDT us Parth DAWSON LAB BLOOD ORDERABLES Final Res ult [facility] [address] [place] [address], [place] [phone] * (ABNORMAL) Comprehensive metabolic panel (07/21/2024 10:52 AM EDT) Sodium 138 133 - 145 mmol/L LAB CHEMISTRY METHOD 07/21/2024 3:24 PM [facility] Potassium 4.7 3.5 - 5.5 mmol/L LAB CHEMISTRY METHOD 07/21/2024 3:24 PM [facility] Chloride 107 96 - 110 mmol/L LAB CHEMISTRY METHOD 07/21/2024 3:24 PM [facility] CO2 26 21 - 32 mmol/L LAB CHEMISTRY METHOD 07/21/2024 3:24 PM [facility] Anion Gap 5 3 - 11 LAB CHEMISTRY METHOD 07/21/2024 3:24 PM [facility] Glucose 113(H) 70 - 100 mg/dL LAB CHEMISTRY METHOD 07/21/2024 3:24 PM [facility] BUN 27(H) 5 - 25 mg/dL LAB CHEMISTRY METHOD 07/21/2024 3:24 PM [facility] Creatinine 1.39(H) 0.70 - 1.30 mg/dL LAB CHEMISTRY METHOD 07/21/2024 3:24 PM [facility] eGFR 53(L) >=60 mL/min/1. 73m2 LAB CHEMISTRY METHOD 07/21/2024 3:24 PM [facility] Comment:Calculation based on the Chronic Kidney Disease Epidemiology Collaboration (CKD-EPI) equation refit without adjustment for race. BUN/Creatinine Ratio 19.4 LAB CHEMISTRY METHOD 07/21/2024 3:24 PM [facility] Calcium 9.1 8.5 - 10.5 mg/dL LAB CHEMISTRY METHOD 07/21/2024 3:24 PM [facility] AST (SGOT) 22 10 - 42 unit/L LAB CHEMISTRY METHOD 07/21/2024 3:24 PM EDT [facility] ALT (SGPT) 34 10 - 60 unit/L LAB CHEMISTRY METHOD 07/21/2024 3:24 PM EDT [facility] Alkaline Phosphatase 60 42 - 121 unit/L LAB CHEMISTRY METHOD 07/21/2024 3:24 PM EDT [facility] Total Protein 7.9 6.0 - 8.0 g/dL LAB CHEMISTRY METHOD 07/21/2024 3:24 PM EDT [facility] Albumin 3.5 3.2 - 5.0 g/dL LAB CHEMISTRY METHOD 07/21/2024 3:24 PM EDT [facility] Total Bilirubin 0.4 0.0 - 1.4 mg/dL LAB CHEMISTRY METHOD 07/21/2024 3:24 PM EDT [facility] Blood Venous blood specimen / Unknown Venipuncture / Unknown 07/21/2024 10:52 AM EDT 07/21/2024 10:52 AM EDT [facility] LAB BLOOD ORDERABLES Final Res ult [facility] [address] [place] [address], * Diabetes Foot Exam (01/14/2024) Pathologist [facility] Diabetes: Annual Foot Exam abstracted Historical Provider HEALTH MAINTENANCE Final Result * Depression Screening (11/12/2023) Pathologist [facility] Depression Screening abstracted Historical Provider HEALTH MAINTENANCE Final Result * Urine Albumin Creatinine Ratio (07/31/2021) Pathologist [facility] Urine Albumin Creatinine Ratio abstracted Historical Provider HEALTH MAINTENANCE Final Result * Abdominal Aortic Aneurysm Screen (07/10/2017) Pathologist [facility] Abdominal Aortic Aneurysm (AAA) Screening abstracted Anatomical Region Laterality Modality Other Historical Provider HEALTH MAINTENANCE Final Result * Hepatitis C Screening (03/13/2016) Hepatitis C Screening abstracted us Historical Provider HEALTH MAINTENANCE Final Result from Last 3 Months or Most Recently Relevant to Health Maintenance Insurance [employer] [place] Advance Directives Documents on File Type Date Recorded 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
--- OUTSIDE RECORDS SUMMARY | 2024-12-23 10:23 | XMS_ITS | Clinical Summary ---
Author Organization [facility] Address [address] [place] [address] Care Team Providers Care Pulper Tender Name Role Phone Jerilyn Hyatt MD Primary [...] age to complete this topic Care Teams Pulper Tender Relationship Specialty Start Date End Date Jerilyn Hyatt MD PCP - General Internal Medicine 07/11/20
== END 2024-12-23 10:02 | disposition home or self-care (01) ==
LOC: HO.RHES 08:52
PROVIDERS: PCP Internal Medicine; Visit Provider Student in an Organized Health Care Education/Training Program
DX: M05.9 Rheumatoid arthritis with rheumatoid factor, unspecified (principal); Z79.622 Long term (current) use of Janus kinase inhibitor; Z51.81 Encounter for therapeutic drug level monitoring; Z79.631 Long term (current) use of antimetabolite agent
CPT/HCPCS: 99214; G2211

== ENCOUNTER → 2024-12-23 08:51 | Outpatient (BNVA) | payer MEDICARE, MEDICAID, SELFPAY | PROVIDERS: PCP Internal Medicine; Visit Provider Student in an Organized Health Care Education/Training Program | DX: M05.70 Rheumatoid arthritis with rheumatoid factor of unspecified site without organ or systems involvement (principal); Z79.622 Long term (current) use of Janus kinase inhibitor; Z51.81 Encounter for therapeutic drug level monitoring; Z79.631 Long term (current) use of antimetabolite agent | CPT/HCPCS: 99212 ==